=== PATIENT | male | born 1940 | race Caucasian/White ===

== ENCOUNTER → 2018-03-18 | Outpatient (CLI) | payer OTHER ==
[~2018-03-18] MED LIST: ASPIR 8181 MG PO; ASPIRIN EC325 MG PO; ATORVASTATIN CA40 MG PO; CLOPIDOGREL PO; COLACE100 MG PO; FLOMAX; HYDROCODONE-AP1 EAC6 PO; IMDUR 60 MG TAB60 M1 PO; LIPITOR80 MG PO; MIRALAX17 GM PO; MULTIVITAMINS1 EAC7 PO; NITROGLYCERIN0.4 MG SUBLING; OMEGA 3 FISH O1 EACH PO; OXYCODONE HCL5 MG PO; PLAVIX 75 MG TA75 M1 PO; POTASSIUM20 PO; PROTONIX40 M1 PO; PROTONIX40 M4 PO; RANEXA1000 MG PO; RANEXA500 MG PO; TERAZOSIN HCL10 MG PO; ULTRAM 50MG TAB50 MG PO; VALIUM5 MG PO; VYTORIN
--- NOTE | 2018-03-26 09:09 | PAINCON ---
[address] [address] PAIN MANAGEMENT CONSULTATION Name: LITODIANAKILO Sulaiman [facility] [id number] Admission: 03/18/18 Attend Phys: Tushar Mrak MD Discharge: Date of : 40 Report #: [id number] THIS REPORT FOR: //name// CC: Eric Munoz DATE OF SERVICE: 03/18/2018 FOLLOWUP HISTORY: Back pain with pain going down into my legs and makes it hard to walk. FOLLOWUP COMPLAINT: The patient is a 77-year-old gentleman who has been referred to the pain clinic for evaluation of back and leg pain. The patient states that he has been having some worsening of his pain over the years. He has been experiencing more pain and discomfort. Notes that if he stands for a prolonged period of time, his legs continue to become more painful. He is limited in his ability to walk. After walking for a period of time, if he sits down, his pain improves. Notes that when he goes shopping, if he leans over the shopping cart, he has less pain and discomfort. Notes some pins and needles type and stabbing sensation down into the lower extremities. Notes that when this happens, his legs start to give more numb. He has to sit down before the pain starts to corry. Denies any back surgeries in the past. Describes his discomfort as continuous, steady, constant, aching, crushing, pulling, sharp and rise to the level 9/10. Notes that sometimes when he is walking if he bends in somewhat of a stopper's position, his back pain improves somewhat. He walks with a slightly forward leaning position. He notes that sometimes decreases some of the pain and discomfort that he gets in his leg. If he stands up straight, he starts to notice pain radiating down the posterior portion of his thighs, left and right. ALLERGIES: PENICILLIN. CURRENT MEDICATIONS: Centrum tablet, fish oil 100 mcg 1 capsule daily, B12 100 mcg tablet, Lamictal 1% cream to the affected external area b.i.d., nitroglycerin 0.4 mg sublingual p.r.n., aspirin 81 mg, Lipitor 80 mg, clopidogrel 75 mg, Viagra 100 mg p.r.n., Cialis 20 mg b.i.d., I guess this biweekly, terazosin 5 mg daily, doxycycline q.12 hours 100 mg, pantoprazole 40 mg b.i.d., diazepam 5 mg t.i.d. as needed, and ibuprofen 800 mg t.i.d. PAST MEDICAL HISTORY: Anxiety, depression, hyperlipidemia, hypertension, and erectile dysfunction. PAST SURGICAL HISTORY: 1. Bypass. 2. [place] 2014[place] [address] PAIN MANAGEMENT CONSULTATION Name: KILO KIMBALL Room: [facility]#: [id number] Admission: 03/18/18 Attend Phys: Tushar Mark MD Discharge: Date of : 40 Report #: [id number] 3. Heart stent. 4. Right shoulder repair in 01/2016. 5. Carpal tunnel release x 2, left hand. FAMILY HISTORY: Father , Alzheimer's. Mother , cardiac disease. Sibling alive. One brother and one sister healthy, 3 sons healthy. SOCIAL HISTORY: Denies use of tobacco. Denies use of alcohol. 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 REVIEW OF SYSTEMS: Questionnaire indicates generally good health, 12-point review of systems, fatigue, wears glasses, cataracts/glaucoma, hearing loss, has bilateral hearing aids, chronic sinus, shortness of breath, heart trouble, frequent urination, incontinence/dribbling, frequent and recurring headaches, lightheadedness, dizziness, memory loss, confusion, nervousness, and depression. PAIN CLINIC ASSESSMENT: 1. The patient is not directly being treated for osteoarthritis or rheumatoid arthritis. History of osteoarthritis. 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 2. Height 5 feet 7 inches, weight 169 pounds, BMI is 22. 3. VITAL SIGNS: Blood pressure 124/73, heart rate 65, respiratory rate 16, room air saturation 96%, temperature 97.8. 4. Pain intensity 4/10 5. Fall risk. The patient has not fallen in the last 3 months. 6. Blood thinner. The patient is not being treated with a blood thinner. 7. History of hypertension. The patient is being treated for hypertension. 8. Opioid therapy greater than 6 weeks. The patient is not on opioid therapy. 9. Risk assessment tool. 10. Functional assessment tool. 11. Recreational drug use. The patient denies recreational drug use. 12. Tobacco: The patient denies use of tobacco. 13. Alcohol: The patient denies frequent use of alcoholic beverages. LABORATORY DATA: MRI results dated 02/10/2018. 1. L1-L2. Narrowed with circumferential osteophyte/disc complex. The central canal has AP diameter of 1.1 cm AP. 2. L2-L3. Broad-based annular disc bulge present with associated small disc osteophyte. Finding in the midline AP diameter of the thecal sac 0.6 cm. Advanced facet arthropathy. 3. L3-L4. Disc narrowed with circumferential annular disc bulge and associated small disc osteophyte arthropathy and posterior ligamentum hypertrophy are present. There is fluid signal intensity, elliptically shaped, anterior to the right facet joint. This measures 0.6 x 0.2 x 1.0 cm, best seen on the axial image 2. Combination of findings at this level resulted in 6.6 cm AP diameter from the thecal sac. There is mild inferior neural [place] [address] PAIN MANAGEMENT CONSULTATION Name: LITODIANAKILO Sulaiman Room: [facility]#: [id number] Admission: 03/18/18 Attend Phys: Tushar Mark MD Discharge: Date of : 40 Report #: [id number] Thecal sac 0.6 AP. 4. L4-L5: Mild disc narrowing with annular disc bulging. No focal disc protrusion. Advanced facet arthropathy present. There is moderate inferior neural foraminal encroachment bilaterally. Findings result in a diameter of 0.5 cm AP. 5. L5-S1. Minimal osteophyte complex. Advance facet arthropathy. Moderate encroachment, right neural foramen and moderate to severe left neural foraminal encroachment. AP diameter 0.9 cm. PHYSICAL EXAMINATION: GENERAL: The patient is a well-developed, well-nourished white male. He appears his stated age. He is alert and oriented x 3. His affect is appropriate. Speech is fluent, HEENT: Normocephalic, atraumatic. Extraocular eye muscles intact. Sclerae nonicteric. The patient has bilateral hearing aids and states that he has some decreased auditory acuity. NECK: Without JVD or bruits. CHEST: Regular rate, murmur 3/4. ABDOMEN: Nontender. MUSCULOSKELETAL: Generally without significant scoliosis or kyphosis. The patient walks somewhat leaning forward. Upper muscle strength is judged to be 5/5 for the major muscle groups. Deep tendon reflexes are trace, biceps bilaterally. Absent, triceps and brachioradialis. Sensory changes in the upper extremity generally within normal limits. Lower extremity, the patient complains of pain and discomfort when standing upright. Forward bending to about 30 degrees cause some increased low back pain as well as some pain radiating down the posterior portion of his legs, left and right lateral rotation, left and right lateral bending cause some slight discomfort. Having the patient stand on his toes quickly lost balance, did not fall, but is slightly unstable. Complains of pain and discomfort in the sciatic outflow tract and down the posterior portion of his legs in the L5-S1 distribution bilaterally. IMPRESSION: 1. Lumbar radiculopathy with spinal stenosis and clinical findings consistent with spinal stenosis in the L5-S1 distribution with lumbar radicular symptoms. 2. Anxiety. 3. Depression. 4. Hyperlipidemia. 5. Hypertension. 6. Erectile dysfunction. RECOMMENDATIONS: We discussed the treatment options with the patient and his son. Risks and benefits of an epidural steroid injection were discussed. Possible complications were reviewed. They include but are not limited to infection, increased muscle soreness headaches, bleeding, worsening of pain, [place] [address] PAIN MANAGEMENT CONSULTATION Name: KALYANCasaKILO Room: [facility] Derrick#: [id number] Admission: 03/18/18 Attend Phys: Tushar Mark MD Discharge: Date of : 40 Report #: [id number] suspect muscle spasms and spinal headache. He will return to the pain clinic at which time he will then undergo an epidural steroid injection. <ELECTRONICALLY SIGNED> By: Tushar Mark MD 03/26/18 0909 [id number] 1959N. John Mark MD /nt
== END ==
LOC: M.PC 02:27
DX: M47.27 Other spondylosis with radiculopathy, lumbosacral region (principal); F41.9 Anxiety disorder, unspecified; F32.9 Major depressive disorder, single episode, unspecified; E78.5 Hyperlipidemia, unspecified; I10 Essential (primary) hypertension; N52.9 Male erectile dysfunction, unspecified; Z88.0 Allergy status to penicillin

== ENCOUNTER → 2018-03-30 | Outpatient (CLI) | payer OTHER ==
--- NOTE | 2018-04-28 13:50 | PAINCON ---
[address] [address] PAIN MANAGEMENT CONSULTATION Name: KILO KIMBALL [facility]: [facility] Meza#: [id number] Admission: 03/30/18 Attend Phys: Tushar Mark MD Discharge: Date of : 40 Report #: [id number] THIS REPORT FOR: //name// CC: Eric Mark DATE OF SERVICE: 03/30/2018 FOLLOWUP COMPLAINT: Pain down into the legs. I saw a neurosurgeon. He is thinking about doing surgery in the near future. My pain is really bad and he feels that it would be okay to proceed with an epidural steroid injection while we wait for my surgery. FOLLOWUP HISTORY: The patient is a 77-year-old gentleman, who has been seen in the pain clinic because of back pain with pain radiating down to his legs. As you recall, he has pain, which is quite problematic. He rates it as a 5/10. He states that he has seen a neurosurgeon. He has met with Dr. Chaparro Barrow. They are contemplating doing surgery for his back at the end of March. He has shattered with them. At this juncture, they feel that it would be reasonable because of his spinal stenosis and chronic pain to undergo an epidural steroid injection at this juncture, will not be a problem with his upcoming surgery. As you recall, he has pain, which has worsened over the years. He notes that the pain is problematic, especially when he stands for some time. He is limited in his ability to walk and engage in activities of daily living. Notes that pain improves when he goes shopping by leaning over the cart. Also, he is having some needle, pin sensation radiating down into his lower extremities. He notes that when this happens, his legs become more numb. After sitting down for a few minutes he notes that his pain starts to corry. He continues to have pain, which he described as continuous, steady, constant, aching, crushing, pulling, sharp and rates it as a level of 5/10 at this juncture. Notes that when he stands erect that he experiences pain that radiates down the posterior portion of his thigh and on the left and right. ALLERGIES: PENICILLIN. CURRENT MEDICATIONS: Fish oil 100 mcg capsule daily, B12 100 mcg tablet, Lamictal cream to the affected area b.i.d., nitroglycerin 0.4 mg sublingual p.r.n., aspirin 81 mg, Lipitor 81 mg, Plavix 75 mg, Viagra 100 mg p.r.n., Cialis 20 mg b.i.d., terazosin 5 mg daily, doxycycline q.12h. 100 mg, pantoprazole 40 mg b.i.d., diazepam 5 mg t.i.d., ibuprofen 800 mg t.i.d. PAIN CLINIC ASSESSMENT: 1. The patient is not being treated for arthritis or rheumatoid arthritis. Has a history of osteoarthritis and has had degenerative disk disease of lumbar spine. 2. VITAL SIGNS: Height 5 feet 7 inches, weight 164 pounds, BMI is 25. Blood [facility] [address] [place] [address] PAIN MANAGEMENT CONSULTATION Name: KILO KIMBALL Room: [facility] Derrick#: [id number] Admission: 03/30/18 Attend Phys: Tushar Mark MD Discharge: Date of : 40 Report #: [id number] pressure 144/73, heart rate 67, respiratory rate 16, room air saturation 97%, temperature 97.7. 3. Pain intensity 03/25. 4. Fall risk. The patient has not fallen in the last 3 months. 5. Blood thinner. The patient is not on a blood thinner. 6. History of hypertension. The patient is being treated for hypertension. 7. Opioid therapy greater than 6 weeks. The patient is not on opioid therapy. 8. Risk assessment tool. 9. Functional assessment tool. 10. Recreational drug use. The patient denies recreational drug use. 11. Tobacco: The patient denies use of tobacco. 12. Alcohol: The patient denies frequent use of alcoholic beverages. PHYSICAL EXAMINATION: GENERAL: The patient is a well-developed, well-nourished white male. He appears stated age. He is alert and oriented. His affect is appropriate. Speech is fluent. HEENT: Normocephalic, atraumatic. Extraocular eye muscles intact. Sclerae nonicteric. Bilateral hearing aids are in place. States that he has some decreased auditory acuity. NECK: Without JVD or bruits. CHEST: Clear to auscultation, grade 3/4 systolic ejection murmur. ABDOMEN: Nontender. MUSCULOSKELETAL: Without significant scoliosis, kyphosis or lordosis. The patient is able to walk and walk somewhat with a forward lean. Upper extremity muscle strength is judged to be 5/5 for the major muscle groups in the upper extremity. Deep tendon reflexes are trace in the biceps and triceps bilaterally. Absent brachioradialis reflexes. Sensory changes upper extremity within normal limits without sensory deprivation. The patient stands with a forward leaning posture. Left and right lateral bending, left and right lateral rotation cause some increased discomfort. The patient unable to stand on his toes or heels secondary to loss of balance. Notes pain and discomfort in the sciatic outflow tract with pain radiating down the L5-S1 distribution during the exam. IMPRESSION: 1. Lumbar radiculopathy with spinal stenosis and clinical findings consistent with spinal stenosis in the L5-S1 distribution with symptomatology. 2. Anxiety. 3. Depression. 4. Hypertension. 5. Hyperlipidemia. 6. Erectile dysfunction. RECOMMENDATIONS: We discussed treatment options with the patient. Risks and benefits of an epidural steroid injection [place] [address] PAIN MANAGEMENT CONSULTATION Name: KILO KIMBALL Room: [facility]#: [id number] Admission: 03/30/18 Attend Phys: Tushar Mark MD Discharge: Date of : 40 Report #: [id number] complication of the procedure, which could include infection, increased muscle soreness, worsening of pain, numbness, paresis were discussed. The patient is aware of the complication and he elects to proceed. PROCEDURE NOTE: The patient was taken to the procedure area. He was then assisted in getting on the examination table. He was placed in the prone position. Alcohol/Betadine was used to sterilize his back. Fluoroscopy using the anterior, posterior as well as lateral direction from fluoroscopy was performed. After the appropriate placement at the lower L5-S1 left lateral position a 17-gauge Tuohy was placed. There was no CSF, heme or paresthesia. Total of 80 mg Depo-Medrol, 40 mg triamcinolone and 2 mL of 0.25% bupivacaine was injected. Fluoroscopy time was 6 seconds. Pain decreased from 5-0 at the time of discharge. The site was bandaged. There was no bleeding. He remained in the pain clinic for an appropriate amount of time. He will follow up in the future as needed. We would like to thank you for letting us participate in his care. We hope he continues to improve. <ELECTRONICALLY SIGNED> By: Tushar Mark MD 04/28/18 1350 [id number] 0452N. John Mark MD /nt
== END | disposition home or self-care (01) ==
LOC: M.PC 02:17
DX: M48.061 Spinal stenosis, lumbar region without neurogenic claudication (principal); M54.16 Radiculopathy, lumbar region; I10 Essential (primary) hypertension; E78.5 Hyperlipidemia, unspecified; N52.9 Male erectile dysfunction, unspecified; F32.9 Major depressive disorder, single episode, unspecified; F41.9 Anxiety disorder, unspecified; M19.90 Unspecified osteoarthritis, unspecified site; Z88.0 Allergy status to penicillin; Z79.899 Other long term (current) drug therapy; Z79.82 Long term (current) use of aspirin; Z79.891 Long term (current) use of opiate analgesic

== ENCOUNTER → 2018-07-29 | Outpatient (CLI) | payer OTHER ==
--- NOTE | 2018-08-30 10:00 | PAINCON ---
[address] [address] PAIN MANAGEMENT CONSULTATION Name: LITODIANAKILO Sulaiman Room: [facility] Meza#: [id number] Admission: 07/29/18 Attend Phys: Tushar Mark MD Discharge: Date of : 40 Report #: [id number] THIS REPORT FOR: //name// CC: Eric Mark DATE OF SERVICE: 07/29/2018 FOLLOWUP COMPLAINT: The pain was 100% better. Now it is 50% better. "I am going on a hunting expedition in a couple of days." FOLLOWUP HISTORY: The patient is a 78-year-old gentleman who has been seen in the pain clinic in the past because of lumbar radiculopathy. He underwent an epidural steroid injection. He gleaned significant benefit from that injection. Overall, he feels that his pain is about 50% better. Still having some discomfort. He and his friends are going hunting in [facility] and other areas in the next few days. He would like to undergo an epidural steroid injection, so he can keep up with his friends. He has had no complications from the procedure. Overall, he feels that he has been able to engage in activities of daily living with less discomfort. He does not have any bowel or bladder dysfunction. He rates his pain as 5/10 at this juncture. ALLERGIES: PENICILLIN. CURRENT MEDICATIONS: Fish oil 100 mcg capsules, B12 100 mcg capsules, Lamictal cream to the affected area b.i.d., nitroglycerin 0.4 mg sublingual p.r.n., aspirin 81 mg, Lipitor 81 mg, Plavix 75 mg, Viagra 100 mg p.r.n., Cialis 20 mg b.i.d., terazosin 5 mg, doxycycline every 12 hours 100 mg, pantoprazole 40 mg b.i.d., diazepam 5 mg t.i.d., ibuprofen 800 mg t.i.d. PAIN CLINIC ASSESSMENT: 1. The patient has not been treated for rheumatoid arthritis or osteoarthritis. Does have a history of osteoarthritis with some degenerative disk disease of the lumbar spine. 2. VITAL SIGNS: Blood pressure 152/73, heart rate 67, respiratory rate 16, room air saturation 97%, temperature 98.0, pain score 5/10. 3. Height 5 feet 7 inches, weight 171 pounds, BMI is 26.9. 4. Fall history: The patient has not fallen in the last 3 months. 5. Blood thinner. The patient is not on a blood thinner medication at this juncture. 6. Hypertension. The patient is being treated for hypertension. 7. Opioid therapy greater than 6 weeks. The patient is not on opioid medication. 8. Risk assessment tool. 9. Functional assessment tool. 10. Recreational drug use. The patient denies [place] [address] PAIN MANAGEMENT CONSULTATION Name: KILO KIMBALL [facility] [id number] Admission: 07/29/18 Attend Phys: Tushar Mark MD Discharge: Date of : 40 Report #: [id number] 11. Tobacco: The patient denies use of tobacco. 12. Alcohol: The patient denies use of alcoholic beverages. PHYSICAL EXAMINATION: GENERAL: The patient is a well-developed, well-nourished white male. Appears his stated age. He is alert and oriented x3. His affect is appropriate. Speech is fluent. HEAD, EYES, EARS, NOSE, AND THROAT: Normocephalic, atraumatic. Extraocular eye muscles intact. Sclerae nonicteric. Mucous membranes are moist. Hearing is within normal limits. The patient has bilateral hearing aids in place. NECK: Without JVD or bruits. CHEST: Clear to auscultation, grade 3/4 systolic ejection murmur. ABDOMEN: Nontender, without organomegaly. MUSCULOSKELETAL: Without significant kyphosis, lordosis, or scoliosis. The patient walks with a somewhat antalgic gait with a forward lean, less so than initially when seen in the pain clinic. Upper extremity muscle strength is judged to be 5/5 for the major muscle groups. Lower extremity muscle strength is judged to be 5-/5 for the major muscle groups in the lower extremity. He has pain and discomfort, which radiates down into the left as well as the right L5-S1 dermatomal distribution. IMPRESSION: 1. Lumbar radiculopathy with history of spinal stenosis. 2. Anxiety. 3. Depression. 4. Hypertension. 5. Hyperlipidemia. 6. Erectile dysfunction. RECOMMENDATIONS: We discussed treatment options with the patient. Risk and benefits of an epidural steroid injection were again reviewed. They include but are not limited to infection, increased muscle soreness, headache, bleeding, worsening of pain, and no improvement in pain. The patient would like to proceed. He was taken to the examination area. He was assisted in getting up on the examination table. His back was sterilely prepped with a Betadine solution. Fluoroscopy using anterior, posterior as well as lateral viewing were instituted. At the L5-S1 area, 0.25% bupivacaine was infiltrated in the midline approach. A 17-gauge Tuohy with loss of resistance technique was used to gain access to the epidural space. There was no CSF, heme or paresthesia. Total of 80 mg Depo-Medrol, 40 mg triamcinolone and 2 mL of 0.25% bupivacaine was injected. The patient tolerated the procedure well. He remained in the pain clinic for an appropriate amount of time. He will follow up in the future as needed. We would like to thank you for letting us to participate in [place] [address] PAIN MANAGEMENT CONSULTATION Name: KILO KIMBALL Room: [facility]#: [id number] Admission: 07/29/18 Attend Phys: Tushar Mark MD Discharge: Date of : 40 Report #: [id number] he continues to improve. Total of 11 seconds fluoroscopy time was used. A Band-Aid was placed. There was no bleeding. <ELECTRONICALLY SIGNED> By: Tushar Mark MD 08/30/18 [id number]. John Mark MD /[facility]
== END | disposition home or self-care (01) ==
LOC: M.PC 04:02
DX: M54.16 Radiculopathy, lumbar region (principal); G89.29 Other chronic pain; I10 Essential (primary) hypertension; E78.5 Hyperlipidemia, unspecified; F32.9 Major depressive disorder, single episode, unspecified; F41.9 Anxiety disorder, unspecified; N52.9 Male erectile dysfunction, unspecified; Z88.0 Allergy status to penicillin; Z79.899 Other long term (current) drug therapy; Z98.890 Other specified postprocedural states; Z79.82 Long term (current) use of aspirin

== ENCOUNTER → 2018-12-14 | Outpatient (CLI) | payer OTHER ==
--- NOTE | ~2018-12-14 | PAINCON ---
[address] [address] PAIN MANAGEMENT CONSULTATION Name: KILO KIMBALL Room: [facility] Meza#: [id number] Admission: 12/14/18 Attend Phys: Tushar Mark MD Discharge: Date of : 40 Report #: [id number] THIS REPORT FOR: //name// CC: Eric Mark DATE OF SERVICE: 12/14/2018 HISTORY OF PRESENT ILLNESS: The patient is a 78-year-old gentleman who has been seen in the pain clinic because of lumbar radiculopathy. He suffers from spinal stenosis. He has undergone epidural steroid injection and gleaned significant benefit from that. He has returned today indicating that his pain has been problematic. He is experiencing pain in his legs and calves bilaterally. He is scheduled to have surgery in 04/[address] Chaparro Barrow. He continues to have pain that radiates down into the posterior portion of his legs, involving his heels. He underwent an epidural steroid injection in the past. He noticed a significant improvement in his pain. He has returned today with the hope of undergoing another epidural steroid injection. He has plans of going on a significant junior ____ number of states including [place], [place], and other [place] states for [place]. He feels that the injection was quite beneficial. He did not have any problems with the injection. He has returned for another injection. Finds that ibuprofen can be helpful, taken p.r.n. ALLERGIES: PENICILLIN. MEDICATIONS: Fish oil 100 mcg capsules, vitamin B12 of 100 mcg capsules, Lamictal cream to the affected area b.i.d., nitroglycerin 0.4 mg sublingual p.r.n., aspirin 81 mg, Lipitor 81 mg, Plavix 75 mg, Viagra 100 mg, Cialis 20 mg b.i.d., terazosin 5 mg, doxycycline q. 12 hours 100 mg, pantoprazole 40 mg b.i.d., diazepam 5 mg t.i.d., and ibuprofen 800 mg t.i.d. PAIN CLINIC ASSESSMENT AND PQRS: 1. The patient is not being treated for rheumatoid arthritis. Has some osteoarthritic changes in his low back area. 2. Vital signs; blood pressure 149/73, heart rate 62, respiratory rate 16, room air saturation 97%, temperature 97.6, height 5 feet 7 inches, weight 178 pounds, BMI is 28.2. 3. Pain score, low and waxes and wanes. Not very problematic today. 4. Fall history: The patient has not fallen in the last 3 months. 5. Blood thinner. The patient is not on a blood thinner today. 6. Hypertension. The patient is being treated for hypertension. 7. Opioid therapy greater than 6 weeks. There is not on an opioid regimen. 8. Risk assessment tool, low for opioid use. 9. Functional assessment tool. 10. Recreational drug use. The patient denies use of recreational drugs. 11. Tobacco: The [place] [address] PAIN MANAGEMENT CONSULTATION Name: KILO KIMBALL Room: [facility]#: [id number] Admission: 12/14/18 Attend Phys: Tushar Mark MD Discharge: Date of : 40 Report #: [id number] 12. Alcohol: The patient denies use of alcoholic beverages. PHYSICAL EXAMINATION: GENERAL: The patient is a well-developed, well-nourished white male. Appears his stated age. He is alert and oriented x 3. His affect is appropriate. Speech is fluent. HEENT: Normocephalic, atraumatic. Extraocular eye muscles intact. Sclerae nonicteric. Mucous membranes are moist. The patient has hearing aids in his ears bilaterally. NECK: Without adenopathy or JVD. CHEST: Clear to auscultation. Grade 3/4 systolic ejection murmur. ABDOMEN: Nontender, without organomegaly. MUSCULOSKELETAL: Without significant kyphosis, scoliosis, or lordosis. The patient walks with somewhat antalgic gait, leaning slightly forward. He has muscle strength in the lower extremity, judged to be 5-/5 for the major muscle groups in the lower extremity. Upper extremity 5-/5 for the major muscle groups. He has pain and discomfort in the L5-S1 dermatomal distribution with pain in his legs when it is problematic bilaterally. IMPRESSION: 1. Lumbar radiculopathy with history of spinal stenosis. 2. Anxiety. 3. Depression. 4. Hypertension. 5. Hyperlipidemia. 6. Erectile dysfunction. RECOMMENDATIONS: We discussed treatment options with the patient. Risks and benefits of an epidural steroid injection were again reviewed. They include but are not limited to infection, worsening pain, no improvement in pain, nerve damage, paralysis and the patient elects to proceed. PROCEDURE NOTE: The patient was placed in the prone position. Fluoroscopy using anterior and posterior positioning was used to identify the L5-S1 dermatomal distribution. Fluoroscopy was then used to direct a 17-gauge Tuohy with loss of resistance technique using a midline approach at the L4-L5 interspace. This area had been sterilely prepped with an infiltration of 0.25% bupivacaine. A total of 80 mg Depo-Medrol, 40 mg triamcinolone and 2 mL of 0.25% bupivacaine was injected. The patient tolerated the procedure well. There were no complications. He remained in the pain clinic for an appropriate amount of time. He will follow up [place] [address] PAIN MANAGEMENT CONSULTATION Name: LITOKILO ORTIZ Room: [facility]#: [id number] Admission: 12/14/18 Attend Phys: Tushar Mark MD Discharge: Date of : 40 Report #: [id number] We would like to thank you for letting us participate in his care. We hope he continues to improve. By: [id number]. John Mark MD /nt
== END | disposition home or self-care (01) ==
LOC: M.PC 04:56
DX: M54.16 Radiculopathy, lumbar region (principal); M48.061 Spinal stenosis, lumbar region without neurogenic claudication; G89.29 Other chronic pain; I10 Essential (primary) hypertension; E78.5 Hyperlipidemia, unspecified; F32.9 Major depressive disorder, single episode, unspecified; F41.9 Anxiety disorder, unspecified; N52.9 Male erectile dysfunction, unspecified; Z88.0 Allergy status to penicillin; Z79.82 Long term (current) use of aspirin; Z79.899 Other long term (current) drug therapy; Z98.890 Other specified postprocedural states

== ENCOUNTER → 2019-02-02 | Outpatient (CLI) | payer OTHER ==
--- NOTE | 2019-02-02 09:27 | 2DMMODE ---
[place] [address] 2 D/M-MODE ECHOCARDIOGRAM Name: LITOKILO ORTIZ Room: [facility]#: [id number] Admission: 02/02/19 Attend Phys: Po Jordan, Discharge: Date of : 40 Date of Service: 02/02/19 0927 Report #: [id number] THIS REPORT FOR: //name// APPROVED REPORT Study performed: 02/02/2019 08:08:32 EXAM: Comprehensive 2D, Doppler, and color-flow Echocardiogram Patient Location: Out-Patient BSA: 1.84 HR: 55 bpm BP: 134/70 mmHg Other Information Study Quality: Good Indications Aortic Valve Disease 2D Dimensions IVSd: 12.16 (7-11mm) LVOT Diam: 20.21 (18-24mm) LVDd: 43.90 mm PWd: 10.02 (7-11mm) Ascending Ao: 31.94 (22-36mm) LVDs: 32.11 (25-40mm) Aortic Root: 26.97 mm Volumes Left Atrial Volume (Systole) LA ESV Index: 14.00 mL/m2 Aortic Valve AoV Peak Dudley.: 1.96 m/s AO Peak Gr.: 15.30 mmHg LVOT Max P.76 mmHg AO Mean Gr.: 9.31 mmHg LVOT Mean P.86 mmHg LVOT Max V: 0.66 m/s AO V2 VTI: 48.15 cm LVOT Mean V: 0.43 m/s WINDY (VTI): 1.04 cm2 LVOT V1 VTI: 15.57 cm Mitral Valve E/A Ratio: 1.29 MV Decel. Time: 205.12 ms MV E Max Dudley.: 0.75 m/s MV PHT: 59.49 ms MVA (PHT): 3.70 [place]2 [place] [address] 2 D/M-MODE ECHOCARDIOGRAM Name: KILO KIMBALL Room: [facility]#: [id number] Admission: 02/02/19 Attend Phys: Po Jordan, Discharge: Date of : 40 Date of Service: 02/02/19 0927 Report #: [id number] TDI E/Lateral E': 6.82 E/Medial E': 8.33 Medial E' Dudley.: 0.09 m/s Lateral E' Dudley.: 0.11 m/s Pulmonary Valve PV Peak Dudley.: 1.13 m/s PV Peak Gr.: 5.14 mmHg Tricuspid Valve RAP Estimate: 5.00 mmHg TR Peak Gr.: 22.37 mmHg RVSP: 27.37 mmHg PA Pressure: 27.37 mmHg Left Ventricle The left ventricle is normal size. There is normal LV segmental wall motion. There is normal left ventricular wall thickness. Left ventricular systolic function is normal. The left ventricular ejection fraction is within the normal range. LVEF is 55%. The left ventricular diastolic function is normal. Right Ventricle The right ventricle is normal size. The right ventricular systolic function is normal. Atria The left atrium size is normal. The right atrium size is normal. Aortic Valve Aortic valve is mildly calcified. No aortic regurgitation is present. There is no aortic valvular stenosis. Mitral Valve Mitral valve leaflets are mildly calcified. Mild mitral regurgitation. No evidence of mitral valve stenosis. Tricuspid Valve The tricuspid valve is normal in structure. Mild tricuspid regurgitation. Pulmonic Valve The pulmonary valve is normal in structure. Mild pulmonic regurgitation[place] [address] 2 D/M-MODE ECHOCARDIOGRAM Name: LITODIANAKILO Sulaiman [facility] [id number] Admission: 02/02/19 Attend Phys: Po Jordan, Discharge: Date of : 40 Date of Service: 02/02/19 0927 Report #: [id number] The aortic root is normal in size. IVC is normal in size and collapses >50% with inspiration. Pericardium There is no pericardial effusion. <Conclusion> The left ventricle is normal size. There is normal left ventricular wall thickness. Left ventricular systolic function is normal. The left ventricular ejection fraction is within the normal range. LVEF is 55%. The left ventricular diastolic function is normal. The right ventricle is normal size. The left atrium size is normal. Aortic valve is mildly calcified. No aortic regurgitation is present. There is no aortic valvular stenosis. Mitral valve leaflets are mildly calcified. Mild mitral regurgitation. No evidence of mitral valve stenosis. The tricuspid valve is normal in structure. Mild tricuspid regurgitation. IVC is normal in size and collapses >50% with inspiration. There is no pericardial effusion. There is normal LV segmental wall motion. <ELECTRONICALLY SIGNED> By: Chaparro Johnson MD, FACC 02/02/19926 6 6 Chaparro Johnson MD, FACC /INF
== END ==
LOC: M.CRD 07:42
DX: I08.1 Rheumatic disorders of both mitral and tricuspid valves (principal); I25.10 Atherosclerotic heart disease of native coronary artery without angina pectoris

== ENCOUNTER → 2019-03-24 | Outpatient (CLI) | payer OTHER ==
--- NOTE | ~2019-03-24 | PAINCON ---
[address] [address] PAIN MANAGEMENT CONSULTATION Name: REHANAKILO Hilario [facility] Meza[facility] [id number] Admission: 03/24/19 Attend Phys: Tushar Mark MD Discharge: Date of : 40 Report #: [id number] THIS REPORT FOR: //name// CC: Eric Mark DATE OF SERVICE: 03/24/2019 CHIEF COMPLAINT: Pain in the low back that is going down into both legs. HISTORY: The patient is a 78-year-old gentleman who has been seen in the Pain Clinic in the past because of lumbar radiculopathy. The patient has a history of spinal stenosis. He has undergone epidural steroid injections and found them beneficial. As you may recall, he is a pily. He has hopes of going on a number of hunting excursions this year. He underwent an epidural injection last year and was able to do reasonably well. His has noticed that his pain has started to increase again. The pain in the low back and calf area is limiting his ability to ambulate well. He feels that he is somewhat unsteady in his gait. He has been advised to use a walker but has tried to refrain from this activity. He is scheduled to see Dr. Chaparro Barrow on 04/01/2019. He has returned today for an epidural steroid injection. He rates his pain as a 10/10. He has used ibuprofen p.r.n. ALLERGIES: PENICILLIN. CURRENT MEDICATIONS: Fish oil 1000 mcg capsules, aspirin 81 mg, Lipitor 80 mg, Valium 5 mg - one-half tablet a.m. and one-half tablet p.m. anxiety, Colace 100 mg, hydrocodone 5/325s one p.o. t.i.d., multivitamin, Protonix 40 mg, MiraLax 17 grams, terazosin 10 mg. PAIN CLINIC ASSESSMENT/PQRS: 1. The patient is not being treated for rheumatoid arthritis. He does have arthritic changes in his low back. 2. Vital signs: Blood pressure is 164/88, pulse 57, respiratory rate 16, room air saturation 97%, temperature 98.1. 3. Height 5 feet 7 inches, weight 178 pounds, BMI is 27.8. 4. Pain intensity: 10/10. 5. Fall history: The patient has not fallen in the last 3 months. 6. Blood thinner: The patient is not on a blood thinning medication. 7. Hypertension: The patient is being treated for hypertension. 8. Opioid therapy greater than 6 weeks: The patient is not on an opioid regimen. 9. Risk assessment tool: Low for opioid use. 10. Functional assessment tool. 11. Recreational drug use: The patient [place] [address] PAIN MANAGEMENT CONSULTATION Name: KILO KIMBALL Room: [facility]#: [id number] Admission: 03/24/19 Attend Phys: Tushar Mark MD Discharge: Date of : 40 Report #: [id number] 12. Tobacco: The patient denies use of tobacco. 13. Alcohol: The patient denies use of alcoholic beverages. PHYSICAL EXAMINATION: GENERAL: The patient is a well-developed, well-nourished white male. He appears his stated age of 78 years. He is alert and oriented x 3. His affect is appropriate. Speech is fluent. HEENT: Normocephalic, atraumatic. Extraocular eye muscles intact. Sclerae nonicteric. Mucous membranes are moist. NECK: Without adenopathy or JVD. CHEST: Clear to auscultation. HEART: Grade 3 systolic ejection murmur. ABDOMEN: Nontender, without organomegaly. MUSCULOSKELETAL: Without significant scoliosis, kyphosis, or lordosis. The patient walks with an antalgic gait. He has a forward lean. He has some diminished strength in his lower extremities, judged to be 4+/5 for the major muscle groups in the lower extremity. Upper extremity 4+/5 for the major muscle groups in the upper extremity. The patient has pain and discomfort, which is in the L5-S1 dermatomal distribution with pain down into both legs. IMPRESSION: 1. Lumbar radiculopathy with history of spinal stenosis. 2. Anxiety. 3. Hypertension. 4. Depression. 5. Hyperlipidemia. 6. Erectile dysfunction. RECOMMENDATIONS: We discussed treatment options with the patient. Risks and benefits of an epidural steroid injection were discussed. They include but are not limited to infection, worsening of pain, increasing of pain, bleeding, nerve trauma, and the patient elects to proceed. PROCEDURE NOTE: The patient was taken to the procedure area. He was then assisted in getting on the examination table. His back was sterilely prepped with a Betadine solution. A 17-gauge Tuohy with loss of resistance technique was used to gain access to the epidural space. There was no CSF, heme or paresthesia. A total of 80 mg Depo-Medrol, 40 mg triamcinolone and 2 mL of 0.25% bupivacaine was injected. A total of 11 seconds of fluoroscopy time was used. The patient's pain remained 10/10 at the time of discharge. He will follow up in the future as needed. [address] [place] [address] PAIN MANAGEMENT CONSULTATION Name: KILO KIMBALL [facility]: [facility] [id number] Admission: 03/24/19 Attend Phys: Tushar Mark MD Discharge: Date of : 40 Report #: [id number] We would like to thank you for letting us participate in his care. We hope he continues to improve. By: 2120 [id number]. John Mark MD /nt
== END | disposition home or self-care (01) ==
LOC: M.PC 05:10
DX: M54.16 Radiculopathy, lumbar region (principal); G89.29 Other chronic pain; I10 Essential (primary) hypertension; F32.9 Major depressive disorder, single episode, unspecified; F41.9 Anxiety disorder, unspecified; E78.5 Hyperlipidemia, unspecified; Z98.890 Other specified postprocedural states; Z79.899 Other long term (current) drug therapy; Z88.0 Allergy status to penicillin; Z79.891 Long term (current) use of opiate analgesic

== ENCOUNTER → 2019-04-12 | Outpatient (CLI) | payer OTHER | LOC: M.MRI 14:30 → M.LAB 14:44 → M.MRI 14:44 | DX: M51.27 Other intervertebral disc displacement, lumbosacral region (principal); M48.07 Spinal stenosis, lumbosacral region; M51.36 Other intervertebral disc degeneration, lumbar region; M12.88 Other specific arthropathies, not elsewhere classified, other specified site ==

== ENCOUNTER 2020-01-30 05:43 | Observation (INO) | payer MEDICARE ==
[2020-01-19 08:55] LABS: ABSOLUTE EOSINOPHILS 0.2 thou/uL (0.0-0.7); ABSOLUTE LYMPHOCYTES 1.6 thou/uL (0.8-5.3); ABSOLUTE MONOCYTES 0.3 thou/uL (0.0-1.2); ABSOLUTE NEUTROPHILS 2.3 thou/uL (1.6-8.1); EOSINOPHILS 4.8 %; HEMATOCRIT 36.9 % (42.0-52.0); HEMOGLOBIN 12.7 gm/dL (14.0-18.0); LYMPHOCYTES 36.5 %; MCH 31.4 pg (26.0-34.0); MCHC 34.3 g/dL (28.0-37.0); MCV 91.6 fL (80.0-100.0); MONOCYTES 6.2 %; MPV 8.6 fl. (7.2-11.1); NUCLEATED RBCS 0 /100WBC; PLATELET COUNT* 201 thou/uL (150-400); POLYS 51.5 %; RBC 4.03 mil/uL (4.50-6.00); WBC 4.5 thou/uL (4.0-11.0)
[2020-01-19 08:59] LABS: APTT 26.6 Seconds (25.0-31.3); INR 1.1; PROTIME 10.9 Seconds (9.20-11.50)
[2020-01-19 09:03] LABS: ALBUMIN 4.1 g/dL (3.4-5.0); CALCIUM 8.8 mg/dL (8.5-10.1); CREATININE 1.4 mg/dL (0.6-1.3); POTASSIUM 4.2 mmol/L (3.5-5.1); TOTAL BILIRUBIN 0.7 mg/dL (<0.1-1.0); TOTAL PROTEIN 7.6 g/dL (6.4-8.2)
[2020-01-19 09:50] LABS: ESR (SEDRATE) 8 mm/hr (0-20)
[~2020-01-30] VITALS: Ht 170.2 cm; Wt 77.1 kg
[~2020-01-30 05:43] MED LIST changes: +FLOMAX0.4 MG PO; +IBU800 MG PO; +MELOXICAM15 MG PO; +VITAMIN B-12100 MC1 PO; +ZETIA10 MG PO
[2020-01-30 08:00] VITALS: BP 140/72
--- NOTE | 2020-01-30 14:03 | CON ---
[address] [address] CONSULTATION Name: KILO KIMBALL Room: [address] [place].R.#: [id number] Admission: 01/30/20 Attend Phys: Mary Mcclure MD Discharge: Date of : 40 Report #: [id number] THIS REPORT FOR: //name// cc: Eric Cleaning Bradley L. DO THIS REPORT FOR: //name// CC: Eric Romero DATE OF SERVICE: 01/30/2020 CARDIOLOGY CONSULTATION HISTORY OF PRESENT ILLNESS: The patient is a 79-year-old single white male who I was asked to see in the hospital today for preoperative assessment. The patient has an extensive past medical history. He apparently had 5-vessel bypass surgery at [facility] in 1989. He has done well since that time. He apparently did have stenting of his circumflex artery back in 2012 here at [facility]. Recently, he has been followed by my partner, Dr. Po Jordan. The patient stays very active and denies recent chest pain, shortness of breath, palpitations, syncope, or peripheral edema. He does have a history of aortic stenosis and apparently had a recent echocardiogram that showed only moderate aortic stenosis. Recently, the patient complained of knee pain. He is scheduled to undergo knee surgery. Dr. Jordan actually saw the patient in the office 2 weeks ago and felt he was stable from a cardiac standpoint and had no cardiac contraindication for knee surgery. However, the patient showed up in outpatient surgery today was noted to have abnormal ECG. Cardiology consultation was again requested. PAST MEDICAL HISTORY: Otherwise significant for prostatic hypertrophy, hyperlipidemia. No history of hypertension, diabetes. PREVIOUS SURGERY: Include carpal tunnel, cataract, shoulder surgery. MEDICATIONS: His current medications include aspirin, which was stopped a week ago, Lipitor, Zetia, Protonix, Hytrin. ALLERGIES: HE HAS AN ALLERGY TO PENICILLIN. FAMILY HISTORY: His brother had bypass surgery. SOCIAL HISTORY: He is , currently is engaged. He lives in [place], [place], runs a [employer]. No [place] [address] CONSULTATION Name: KILO KIMBALL Room: [address]#: [id number] Admission: 01/30/20 Attend Phys: Mary Mcclure MD Discharge: Date of : 40 Report #: [id number] REVIEW OF SYSTEMS: He has had no history of stroke, asthma, GI bleeding, liver disease, kidney disease, cancer, psychiatric illness, chronic skin condition. PHYSICAL EXAMINATION: GENERAL: Revealed an elderly male, lying in bed, appeared in no distress. VITAL SIGNS: Blood pressure 130/60, pulse is 80. HEENT: Eyes anicteric. Conjunctivae are pink. Mucous membranes are moist. NECK: Veins not distended. CHEST: Clear to auscultation. CARDIOVASCULAR: Regular rate and rhythm, grade 3 systolic ejection murmur along the left sternal border. ABDOMEN: Soft. EXTREMITIES: Had no edema. Posterior tibial pulse 2+ bilaterally. SKIN: Warm and dry. NEUROLOGIC: Nonfocal. DIAGNOSTIC DATA: His ECG from 01/18 showed sinus bradycardia, evidence of previous inferior infarction. ECG done today in preoperative area showed a sinus rhythm, evidence of previous inferior infarction, nonspecific T-wave changes. His echocardiogram done 01/2019, a year ago showed an ejection fraction of 50% with evidence of only mild aortic stenosis, peak gradient 15 mmHg. His last nuclear stress test in 2016 showed ejection fraction of 65% with no evidence of ischemia. The patient had lab work 01/18 that showed potassium 4.2, creatinine 1.4. Liver function studies were normal. White blood cell count 4.5, hematocrit 36.9. IMPRESSION AND RECOMMENDATIONS: 1. Coronary artery disease. Previous bypass surgery. No recent angina. I would resume aspirin today after surgery, because of vascular disease I would consider adding an YUNIER inhibitor. 2. Hyperlipidemia. The patient is on a statin drug and Zetia. 3. Mild aortic stenosis. 4. Degenerative joint disease. The patient is scheduled for knee surgery. He appears to have no cardiac contraindication to elective knee surgery. 5. Prostatism. <ELECTRONICALLY SIGNED> By: Waylon Sidhu MD, [facility] 01/30/20 1403 [id number] [id number] Sidhu MD, FAC /nt
[2020-01-30 16:05] VITALS: BP 122/66
[2020-01-30 20:37] VITALS: BP 133/65
[2020-01-30 23:57] VITALS: BP 151/70
[2020-01-31 03:47] LABS: HEMATOCRIT 31.7 % (42.0-52.0); HEMOGLOBIN 11.1 gm/dL (14.0-18.0)
[2020-01-31 04:27] VITALS: BP 136/65
[2020-01-31 09:32] VITALS: BP 129/67
[2020-01-31 11:04] VITALS: BP 129/67
[2020-01-31] MEDS ORDERED: TRAMADOL 50 MG50 MG PO (11:21)
[2020-01-31] MEDS ORDERED: OXYCODONE HCL 55 MG PO (11:23)
[2020-01-31] MEDS ORDERED: ELIQUIS2.5 MG PO (11:24)
--- NOTE | 2020-02-16 14:29 | OP ---
[address] [address] OPERATIVE REPORT Name: KILO KIMBALL Room: [address] Apollo Meza#: [id number] Admission: 01/30/20 Attend Phys: Mary Mcclure MD Discharge: 01/31/20 Date of : 40 Report #: [id number] THIS REPORT FOR: //name// cc: Eric Cleaning Bradley L. DO ~ THIS REPORT FOR: //name// CC: Eric Lees DATE OF SERVICE: 01/30/2020 Elio Lake DO dictating for Dr. Dick Lees DO. PREOPERATIVE DIAGNOSIS: Right knee degenerative joint disease. POSTOPERATIVE DIAGNOSIS: Right knee degenerative joint disease. OPERATION PERFORMED: Right total knee arthroplasty utilizing. IMPLANTS: Biomet Vanguard system with the following components: A. A size 65 cemented right cruciate retained femoral component. B. A size 79 cemented right fixed cruciate tibial tray. C. A 34 mm oval cemented 3 peg patellar button. D. A 12 anterior stabilized tibial bearing polyethylene. SURGEON: Dick Lees DO CORE ANALYST: Elio Lake DO SECOND CORE ANALYST: Lex Foss DO ANESTHESIA: General. ESTIMATED BLOOD LOSS: 225 mm. COMPLICATIONS: None. DRAINS: None. ANTIBIOTICS: 600 mg of clindamycin IV piggyback 30 minutes prior to surgery. GROSS PATHOLOGY: Surgical inspection of the knee revealed eburnated bone in all 3 compartments. Osteophytic lipping, [place] [address] OPERATIVE REPORT Name: KILO KIMBALL Room: [address] Apollo Meza#: [id number] Admission: 01/30/20 Attend Phys: Mary Mcclure MD Discharge: 01/31/20 Date of : 40 Report #: [id number] DESCRIPTION OF PROCEDURE: The patient was seen in the preoperative area. The correct procedure, procedure site were confirmed and all parties were in agreement. The patient was then taken to the operating suite and placed on the operating table in supine position. The patient was given the benefit of general anesthetic, a well-padded pneumatic tourniquet was placed at the proximal aspect of the right thigh, but was not inflated during the case, then the right lower extremity was thoroughly prepped and draped in usual sterile fashion. A timeout was performed verifying the correct patient, patient identity and procedure to be performed. All parties agreed. A midline skin incision was made over the right knee, carried down through the skin and subcutaneous tissue. Next, a standard medial parapatellar arthrotomy was performed with a scalpel. The patella was then everted laterally. The knee was then flexed to 110 degrees. The menisci thigh and the anterior cruciate ligaments were excised. Next, a drill hole in the distal femur was placed in the appropriate position. Intramedullary alignment lj set at 5 degrees valgus angulation with the distal femoral cutting block set to resect 10 mm, and held in position with pins. Distal femoral cut was made through the blocks. Next, the external tibial alignment guide was utilized referencing the medial aspect of the tibial tubercle, mid talus and second ray of the foot. It was set to resect 10 mm from the high lateral side and was held in position with pins. Proximal tibial cut was made through the block. The extension gap was checked with a 10 and was found to be symmetric. Next, the distal femoral sizing guide was placed on the femur and it was sized appropriately 3 degrees of external rotation, drill holes were drilled through the guide. A 4-in-1 distal femoral cutting block was impacted through the previous holes. Distal femoral cuts were made sequentially through the block. The knee was then hyperflexed and the tibia was appropriately sized. The tibial tray was placed in appropriate rotation and held with pins. An appropriately sized femur trial was then placed and a 12 spacer was then placed. Trial reduction was performed and the above implants, the 12 allowed full extension and flexion to 130 degrees with excellent stability and patellar tracking throughout motion. Flexion and extension gaps were symmetric. The patella was then cut utilizing a patellar reamer, then measured to be a 34. The tibia was then reamed and punched through the trial base plate. Trial components were removed. Pulsatile lavage was carried out to all cut bony structures. Two bags of Biomet cement were then mixed and pressurized into the bony cuts and placed on the final components. These were then impacted and held under pressure as the cement hardened. All excess cement was removed. A final trial reduction performed and the 12 spacer was selected and placed, deep tissue was injected with pain cocktail. The knee was then flexed to 60 degrees. Quad and capsule were closed with #1 Vicryl in a [id number]-zoksb fashion and a running #1 Stratafix. Subcutaneous tissue was closed with a 2-0 Monocryl in a simple interrupted fashion. Skin was closed with a 3-0 Stratafix and Dermabond. A sterile Mepilex dressing was applied. The patient was then awakened from anesthesia [place] [address] OPERATIVE REPORT Name: KILO KIMBALL Room: [address] Apollo Meza#: [id number] Admission: 01/30/20 Attend Phys: Mary Mcclure MD Discharge: 01/31/20 Date of : 40 Report #: [id number] table back to the PACU area for recovery. The patient tolerated the procedure well. Counts were performed and verified correct x 2. <ELECTRONICALLY SIGNED> By: Dick Lees DO 02/16/20 1429 2227 0002Dick Lees DO /nt
--- NOTE | 2020-02-24 11:20 | EKG ---
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: : 1940 Requested By: Dick Lees Order Number: [id number] Lukas MD: Waylon Sidhu Measurements Intervals [place] Rate: 59 P: 47 NC: 189 QRS: 80 QRSD: 114 T: -7 QT: 403 QTc: 400 Interpretive Statements Sinus rhythm Borderline intraventricular conduction delay Borderline T wave abnormalities Baseline wander in lead(s) V1,V2 Electronically Signed On 01-19-2020 14:18:05 DAIRY PROCESSING EQUIPMENT OPERATOR by Waylon Sidhu [email or web address] <ELECTRONICALLY SIGNED> By: Waylon Sidhu MD, [facility] 01/19/20 1418 4 Waylon Sidhu MD, [facility] /EPI
--- NOTE | 2020-02-24 11:42 | EKG ---
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
== END 2020-01-31 13:30 | disposition home or self-care (01) ==
LOC: M.ORTHSURG 05:43 → M.TBA 05:43 → M.PRE 08:25 → M.ORTHSURG 12:51 → M.TBA 12:51 → M.ORTHSURG 12:51 → M.PRE 13:27 → M.ORTHSURG 16:02
PROVIDERS: Orthopaedic Surgery; ADMIT Internal Medicine; ATTEND Internal Medicine
DX: M17.11 Unilateral primary osteoarthritis, right knee (principal); E78.5 Hyperlipidemia, unspecified; I25.10 Atherosclerotic heart disease of native coronary artery without angina pectoris; I35.0 Nonrheumatic aortic (valve) stenosis; N40.0 Benign prostatic hyperplasia without lower urinary tract symptoms; R55 Syncope and collapse; Z95.1 Presence of aortocoronary bypass graft

== ENCOUNTER 2020-02-08 19:23 | Emergency (ER) | payer MEDICARE ==
[~2020-02-08] VITALS: Ht 167.6 cm; Wt 77.1 kg
[~2020-02-08 19:23] MED LIST changes: +ELIQUIS2.5 MG PO; +OXYCODONE HCL 55 MG PO; +TRAMADOL 50 MG50 MG PO
[2020-02-08 20:11] LABS: ABSOLUTE BASOPHILS 0.1 thou/uL (0.0-0.2); ABSOLUTE EOSINOPHILS 0.3 thou/uL (0.0-0.7); ABSOLUTE LYMPHOCYTES 1.4 thou/uL (0.8-5.3); ABSOLUTE MONOCYTES 0.6 thou/uL (0.0-1.2); ABSOLUTE NEUTROPHILS 4.3 thou/uL (1.6-8.1); BASOPHILS 0.8 %; EOSINOPHILS 4.8 %; HEMOGLOBIN 9.6 gm/dL (14.0-18.0); LYMPHOCYTES 20.7 %; MCH 32.5 pg (26.0-34.0); MCHC 35.8 g/dL (28.0-37.0); MONOCYTES 9.4 %; NUCLEATED RBCS 0 /100WBC; PLATELET COUNT* 396 thou/uL (150-400); POLYS 64.3 %; RBC 2.97 mil/uL (4.50-6.00); RDW-CV 13.1 % (10.5-14.5); WBC 6.7 thou/uL (4.0-11.0)
[2020-02-08 20:19] LABS: CALCIUM 8.4 mg/dL (8.5-10.1); CREATININE 1.3 mg/dL (0.6-1.3); POTASSIUM 4.4 mmol/L (3.5-5.1)
[2020-02-08 20:24] LABS: ALBUMIN 3.1 g/dL (3.4-5.0); TOTAL BILIRUBIN 0.9 mg/dL (<0.1-1.0); TOTAL PROTEIN 7.2 g/dL (6.4-8.2)
[2020-02-08] MEDS ORDERED: CHLORPROMAZINE25 M1 PO (21:35)
[2020-02-08 22:12] VITALS: BP 143/59
--- NOTE | 2020-02-09 08:57 | EKG ---
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: [place] : 1940 Requested By: Natty Boudreaux Order Number: [id number] MD: Waylon Sidhu Measurements Intervals [place] Rate: 75 P: 50 MT: 177 QRS: 10 QRSD: 113 T: 3 QT: 384 QTc: 429 Interpretive Statements Sinus rhythm Borderline intraventricular conduction delay Borderline low voltage, extremity leads Baseline wander in lead(s) V4 Compared to ECG 01/30/2020 07:42:30 no change Electronically Signed On 02-09-2020 8:56:02 CDT by Waylon Sidhu [email or web address] <ELECTRONICALLY SIGNED> By: Waylon Sidhu MD, FACC 02/09/20 0856 37 37 Waylon Sidhu MD, [facility] /EPI
== END 2020-02-08 22:13 | disposition home or self-care (01) ==
LOC: M.ERS 19:23
PROVIDERS: Physician Assistant
DX: D64.9 Anemia, unspecified (principal); R06.6 Hiccough; R74.0 Nonspecific elevation of levels of transaminase and lactic acid dehydrogenase [LDH]; E78.00 Pure hypercholesterolemia, unspecified; K21.9 Gastro-esophageal reflux disease without esophagitis; M06.9 Rheumatoid arthritis, unspecified; Z88.0 Allergy status to penicillin; Z95.1 Presence of aortocoronary bypass graft

== ENCOUNTER 2020-02-19 16:53 | Observation (INO) | payer MEDICARE ==
[~2020-02-19] VITALS: Ht 170.2 cm; Wt 79.8 kg
--- NOTE | ~2020-02-19 | EMS ---
[address] [place] [place] [address] EMS Patient Care Report Name: KILO KIMBALL [id number] Admission: 02/19/20 Attend Phys: Discharge: Date of : 40 Report #: [id number] THIS REPORT FOR: //name// Report Transmitted: 02/19/2020 17:07 EMS Care Summary [facility]ident [id number] @ 02/19/2020 15:47 Incident Location [id number] [place] [address] Patient KILO KIMBALL Male, 79 Years 1940 Patient Address [address] [place] [address] Patient History Hypertension (HTN),Hyperlipidemia,Gastro-Esophageal Reflux Disease (GERD),Surgery,Cardiac Condition - Other, Patient Allergies Penicillin allergy, Patient Medications Oxycodone, Protonix, ASA, Eliquis, Nitroglycerin, Zetia, Valium, Tramadol, Miralax, Lipitor, Terazosin, Chief Complaint Constipation and stomach pain Disposition Transported No Lights/[place] Dispatch Reason Sick Person Transported To [facility] Narrative D: [facility] Dispatched for a 79 yr old male with constipation. [facility] responded nonemergent with no incident. [address] [place] [id number] EMS Patient Care Report Name: KILO KIMBALL [facility]: [facility]#: [id number] Admission: 02/19/20 Attend Phys: Discharge: Date of : 40 Report #: [id number] CC: On EMS arrival patient was laying left lateral in back bedroom in bed. Pt c/o lower abd pain and constipation. H: Pt stated that he had had constipation and stomach pain for the "last few days". Pt states that he had knee surgery on January 30, 2020 and was given narcotics for pain management. Pt stated that his stomach pain and constipation was much worse today. Pt stated that he had taken suppository, done an enema, and taken Miralax prior to calling EMS. Pt is negative on COVID screening. Pt states he has had a dry cough for a few years. A: See Assessment Tab. Initial assessment- Airway is patient, breathing is spontaneous and nonlabored, circulation is strong and regular. Pt is RDZ to PPTE. Skin- Warm dry and flushed. No bleeding or immediate life threat noted. R: Pt requested transport to [facility]. T: Vitals and assessments obtained. Pt was assisted to wheelchair then from wheelchair to cot. Pt was placed in position of comfort. Pt was secured to cot using straps provided and then secured into ambulance. Radio report given. Pt was continually reassessed. S: Pt complained of nausea toward end of transport and produced brown phlegm. Pt continuously complained of constipation and stomach pain during transport stating multiple times that he "want[ed] to " due to his pain. Pt stated that he had no suicide plan and said he wanted to "because I am in so much pain I don't care what happens". At receiving facility, patient care was transferred to nursing staff with verbal report given. RTS. Milo Hearn EMT-B Initial Vitals @16:13P: 79,R: 16,BP: 159/63,Pain: 10/10,GCS: 15,SpO2: 96,Revised Trauma: 12, @16:38P: 94,R: 16,BP: 153/92,Pain: 10/10,GCS: 15,SpO2: 98,Revised Trauma: 12, Assessments @16:00MENTAL:Time Oriented,Person Oriented,Place Oriented,Event Oriented,SKIN:HEENT:Head/Face: No Abnormalities,Neck/Airway: No Abnormalities,LUNG SOUNDS:General: Nausea,Left Upper: Distension,General: Absent Bowel Sounds,Right Upper: Distension,Right Lower: Distension,Left Lower: Distension,ABDOMEN:General: Nausea,Left Upper: Distension,General: Absent Bowel Sounds,Right Upper: Distension,Right Lower: Distension,Left Lower: Distension,PELVIS//GI:Incontinence,EXTREMITIES:Right Arm: Other,Capillary Refill: Left Upper: < 2 Sec,Left Arm: No Abnormalities,Left Leg: No Abnormalities,Right Leg: No Abnormalities,PULSE:Radial: 2+ Normal,NEURO:No Abnormalities,@16:40MENTAL:Place Oriented,Event Oriented,Time Oriented,[place] [address] EMS Patient Care Report Name: KILO KIMBALL [id number] Admission: 02/19/20 Attend Phys: Discharge: Date of : 40 Report #: [id number] Oriented,SKIN:HEENT:Head/Face: No Abnormalities,LUNG SOUNDS:General: Absent Bowel Sounds,General: Nausea,Left Lower: Distension,Right Lower: Distension,Right Upper: Distension,Left Upper: Distension,ABDOMEN:General: Absent Bowel Sounds,General: Nausea,Left Lower: Distension,Right Lower: Distension,Right Upper: Distension,Left Upper: Distension,PELVIS//GI:Incontinence,EXTREMITIES:Left Arm: No Abnormalities,Right Arm: No Abnormalities,Left Leg: No Abnormalities,Right Leg: No Abnormalities,PULSE:Radial: 2+ Normal,NEURO:No Abnormalities, Impression Constipation Procedures @16:00BLS AssessmentResponse: Unchanged Timeline 15:47,Call Received 15:47,Dispatched 15:51,En Route 15:58,On Scene 16:00,At Patient 16:00,BLS Assessment,Response: Unchanged 16:13,BP: 159/63 M,PULSE: 79,RR: 16 R,SPO2: 96 Ox,ETCO2: ,BG: ,PAIN: 10,GCS: 15, 16:15,Depart Scene 16:38,BP: 153/92 M,PULSE: 94,RR: 16 R,SPO2: 98 Ox,ETCO2: ,BG: ,PAIN: 10,GCS: 15, 16:49,At Destination 17:48,Call Closed Disclaimer v1.1 Copyright 2020 [employer] This EMS Care Summary contains data elements from the applicable legal record (which may be displayed differently). It is designed to provide pertinent information for the following purposes: continuity of care, clinical quality, and state data reporting. The complete legal record is available to ED staff and administrators of the receiving hospital in [employer] Patient Tracker. All data is provided "as is."
[~2020-02-19 16:53] MED LIST changes: +CHLORPROMAZINE25 M1 PO
[2020-02-19 16:57] VITALS: BP 132/75
[2020-02-19] MEDS ORDERED: MELOXICAM15 MG PO (16:58)
[2020-02-19] MEDS ORDERED: SENNA PLUS TAB1 EACH PO (16:59)
[2020-02-19] MEDS ORDERED: OXYCODONE HCL 55 MG PO (17:00)
[2020-02-19] MEDS ORDERED: LAXATIVE5 M1 PO (17:00)
[2020-02-19 17:14] LABS: HEMATOCRIT 32.6 % (42.0-52.0); HEMOGLOBIN 11.1 gm/dL (14.0-18.0); MCHC 34.1 g/dL (28.0-37.0); MCV 90.9 fL (80.0-100.0); MPV 7.6 fl. (7.2-11.1); NUCLEATED RBCS 0 /100WBC; PLATELET COUNT* 424 thou/uL (150-400); RBC 3.59 mil/uL (4.50-6.00); RDW-CV 13.4 % (10.5-14.5)
[2020-02-19 17:32] LABS: CREATININE 1.3 mg/dL (0.6-1.3); POTASSIUM 4.1 mmol/L (3.5-5.1)
[2020-02-19 17:36] LABS: ALBUMIN 3.8 g/dL (3.4-5.0); TOTAL BILIRUBIN 0.6 mg/dL (<0.1-1.0); TOTAL PROTEIN 7.7 g/dL (6.4-8.2)
[2020-02-19 17:43] LABS: ABSOLUTE EOSINOPHILS 0.1 thou/uL (0.0-0.7); ABSOLUTE LYMPHOCYTES 0.5 thou/uL (0.8-5.3); ABSOLUTE MONOCYTES 0.1 thou/uL (0.0-1.2); ABSOLUTE NEUTROPHILS 12.2 thou/uL (1.6-8.1); ANISOCYTOSIS 1+; PLATELET ESTIMATE INCREASED; POIKILOCYTOSIS Occasional; POLYCHROMASIA Occasional
[2020-02-19 19:48] LABS: URINE BILIRUBIN NEGATIVE (Negative); URINE BLOOD NEGATIVE (Negative); URINE CLARITY CLEAR; URINE COLOR YELLOW; URINE GLUCOSE-RANDOM NEGATIVE (Negative); URINE KETONES NEGATIVE (Negative); URINE LEUKOCYTES NEGATIVE (Negative); URINE NITRITE NEGATIVE (Negative); URINE PROTEIN NEGATIVE (Negative); URINE SPECIFIC GRAVITY 1.025 (1.005-1.030); URINE UROBILINOGEN 0.2 E.U./dl (0.2-1.0)
[2020-02-19 20:53] VITALS: BP 143/66
[2020-02-19 21:00] VITALS: BP 132/61
[2020-02-19] MEDS ORDERED: DIAZEPAM 5 MG5 M1 PO (22:43)
[2020-02-20 00:42] VITALS: BP 123/58
--- NOTE | 2020-02-20 05:08 | NUR ---
REPORT RECIEVED FROM ER. PT ORIENTED TO ROOM, CALL LIGHT SHOWN, FALL AGREEMENT WENT OVER, PT STATED UNDERSTANDING. ADMISSION DOCUMENTED. IV PATENT, FLUIDS INFUSING. PT STATES HIS PAIN HAS RESOLVED. MEDS GIVEN PER E-MAR. PT HAS HAD SEVERAL BM'S THIS SHIFT. FALL PRECAUTIONS IN PLACE. WILL CONTINUE WITH PLAN OF CARE.
[2020-02-20 08:00] VITALS: BP 149/64
--- NOTE | 2020-02-20 09:10 | EKG ---
[place] [address] ELECTROCARDIOGRAM REPORT Name: LITODIANAKILO Hilario Room: [address] M.R.#: [id number] Admission: 02/19/20 Attend Phys: Dwain oneal Sa Discharge: Date of : 40 Date of Service: 02/19/20 1726 Report #: [id number] THIS REPORT FOR: //name// [facility] ED Test Date: 2020-02-19 Test Time: 17:26:33 Pat Name: KILO KIMBALL Department: Room: 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 : 1940 Requested By: Natty Boudreaux Order Number: [id number] MD: Waylon Sidhu Measurements Intervals [place] Rate: 83 P: 30 WI: 167 QRS: -21 QRSD: 112 T: 35 QT: 368 QTc: 433 Interpretive Statements Sinus rhythm Abnormal R-wave progression, late transition Inferior infarct, old Compared to ECG 02/08/2020 19:38:01 no change Electronically Signed On 02-20-2020 9:09:26 CDT by Waylon Sidhu [email or web address] <ELECTRONICALLY SIGNED> By: Waylon Sidhu MD, [facility] 02/20/20 0909 1726 1726 aWylon Sidhu MD, [facility] /EPI
[2020-02-20 10:10] LABS: ABSOLUTE MONOCYTES 0.6 thou/uL (0.0-1.2); ABSOLUTE NEUTROPHILS 7.9 thou/uL (1.6-8.1); BASOPHILS 0.4 %; EOSINOPHILS 0.2 %; HEMATOCRIT 28.9 % (42.0-52.0); HEMOGLOBIN 9.9 gm/dL (14.0-18.0); LYMPHOCYTES 10.4 %; MCH 31.6 pg (26.0-34.0); MCHC 34.3 g/dL (28.0-37.0); MONOCYTES 6.3 %; MPV 7.7 fl. (7.2-11.1); NUCLEATED RBCS 0 /100WBC; POLYS 82.7 %; RBC 3.14 mil/uL (4.50-6.00); RDW-CV 13.7 % (10.5-14.5); WBC 9.6 thou/uL (4.0-11.0)
[2020-02-20 10:11] LABS: PLATELET COUNT* 318 thou/uL (150-400)
[2020-02-20 10:31] LABS: ALBUMIN 3.2 g/dL (3.4-5.0); CALCIUM 7.9 mg/dL (8.5-10.1); CREATININE 1.2 mg/dL (0.6-1.3); TOTAL BILIRUBIN 0.8 mg/dL (<0.1-1.0); TOTAL PROTEIN 6.6 g/dL (6.4-8.2)
[2020-02-20 11:46] VITALS: BP 149/64
[2020-02-20 13:44] VITALS: BP 149/64
--- NOTE | 2020-02-20 13:45 | NUR ---
ASSESSMENT COMPLETED DOCUMENTED THIS MORINING...PATIENT UP FREQUENTLY TO BSC FOR BOWELS TO MOVE. NS AT 100CC/HR INFUSING IN RIGHT A/C. VSS. DR. RODRIGUEZ IN AND ORDERS TO DC REC'D. DC INSTRUTIONS GIVEN TO PATIENT WITH UNDERSTANDING VERBALIZED AND SIGNATURE OBTAINED. SIG OTHER BROUGHT CLOTHES FROM HOME, PATIENT ABLE TO DRESS SELF AND WAS DCD VIA WC WITH DC INSTRUCTIONS IN HAND TO FAMILY CAR IN GOOD CONDITION AT 1315.
== END 2020-02-20 13:15 | disposition home or self-care (01) ==
LOC: M.ERS 16:53 → M.2W 20:02 → M.TBA-ER 20:02 → M.2W 21:00
PROVIDERS: Internal Medicine; Physician Assistant; ADMIT Family Medicine
DX: K56.41 Fecal impaction (principal); E78.00 Pure hypercholesterolemia, unspecified; M06.9 Rheumatoid arthritis, unspecified; K21.9 Gastro-esophageal reflux disease without esophagitis; K59.00 Constipation, unspecified; D64.9 Anemia, unspecified; E78.5 Hyperlipidemia, unspecified; D72.829 Elevated white blood cell count, unspecified; Z98.890 Other specified postprocedural states; Z95.1 Presence of aortocoronary bypass graft

== ENCOUNTER → 2020-07-12 | Outpatient (CLI) | payer MEDICARE ==
[~2020-07-12] MED LIST changes: +DIAZEPAM 5 MG5 M1 PO; +LAXATIVE5 M1 PO; +SENNA PLUS TAB1 EACH PO
--- NOTE | 2020-07-12 15:21 | 2DMMODE ---
[place] [address] 2 D/M-MODE ECHOCARDIOGRAM Name: KILO KIMBALL Room: [facility]#: [id number] Admission: 07/12/20 Attend Phys: Po Jordan, Discharge: Date of : 40 Date of Service: 07/12/20 1521 Report #: [id number] THIS REPORT FOR: cc: Eric Cleaning Bradley L. DO Liston, Michael J. MD [facility] ~ APPROVED REPORT Study performed: 07/12/2020 11:19:25 EXAM: Comprehensive 2D, Doppler, and color-flow Echocardiogram Patient Location: Out-Patient BSA: 1.87 HR: 53 bpm Rhythm: NSR Other Information Study Quality: Good Indications Aortic Valve Disease 2D Dimensions IVSd: 11.91 (7-11mm) LVOT Diam: 21.44 (18-24mm) LVDd: 49.74 mm PWd: 10.85 (7-11mm) Ascending Ao: 31.71 (22-36mm) LVDs: 32.52 (25-40mm) Aortic Root: 32.43 mm Volumes Left Atrial Volume (Systole) LA ESV Index: 31.20 mL/m2 Aortic Valve AoV Peak Dudley.: 1.90 m/s AO Peak Gr.: 14.49 mmHg LVOT Max P.17 mmHg AO Mean Gr.: 8.57 mmHg LVOT Mean P.61 mmHg LVOT Max V: 0.54 m/s AO V2 VTI: 47.77 cm LVOT Mean V: 0.36 m/s WINDY (VTI): 1.15 cm2 LVOT V1 VTI: 15.15 [place] [address] 2 D/M-MODE ECHOCARDIOGRAM Name: KILO KIMBALL Room: [facility]#: [id number] Admission: 07/12/20 Attend Phys: Po Jordan, Discharge: Date of : 40 Date of Service: 07/12/20 1521 Report #: [id number] E/A Ratio: 1.58 MV Decel. Time: 153.32 ms MV E Max Dudley.: 1.00 m/s MV PHT: 44.46 ms MVA (PHT): 4.95 cm2 TDI E/Lateral E': 10.00 E/Medial E': 12.50 Medial E' Dudley.: 0.08 m/s Lateral E' Dudley.: 0.10 m/s Pulmonary Valve PV Peak Dudley.: 1.06 m/s PV Peak Gr.: 4.50 mmHg Tricuspid Valve RAP Estimate: 5.00 mmHg TR Peak Gr.: 20.08 mmHg RVSP: 25.00 mmHg PA Pressure: 25.00 mmHg Left Ventricle The left ventricle is normal size. There is normal LV segmental wall motion. There is normal left ventricular wall thickness. Left ventricular systolic function is normal. LVEF is 55-60%. Transmitral Doppler flow pattern suggests impaired LV relaxation. Right Ventricle The right ventricle is normal size. The right ventricular systolic function is normal. Atria The left atrium size is normal. The right atrium size is normal. Aortic Valve Moderate aortic valve sclerosis. No aortic regurgitation is present. Moderate aortic stenosis. Mitral Valve The mitral valve is normal in structure. Trace mitral regurgitation. No evidence of mitral valve stenosis. Tricuspid Valve The tricuspid valve is normal in structure. Mild tricuspid regurgitation. No pulmonary [place] [address] 2 D/M-MODE ECHOCARDIOGRAM Name: KILO KIMBALL Sulaiman [id number] Admission: 07/12/20 Attend Phys: Po Jordan, Discharge: Date of : 40 Date of Service: 07/12/20 1521 Report #: [id number] The pulmonary valve is normal in structure. Trace pulmonic regurgitation. Great Vessels The aortic root is normal in size. IVC is normal in size and collapses >50% with inspiration. Pericardium There is no pericardial effusion. <Conclusion> The left ventricle is normal size. There is normal left ventricular wall thickness. Left ventricular systolic function is normal. LVEF is 55-60%. Transmitral Doppler flow pattern suggests impaired LV relaxation. Moderate aortic valve sclerosis. Moderate aortic stenosis. Trace mitral regurgitation. Mild tricuspid regurgitation. No pulmonary hypertension. IVC is normal in size and collapses >50% with inspiration. <ELECTRONICALLY SIGNED> By: Po Jordan MD, FACC 07/12/20 1521 152 152 Po Jordan MD, FACC /INF
== END ==
LOC: M.CRD 10:56
PROVIDERS: ATTEND Internal Medicine Cardiovascular Disease
DX: I08.2 Rheumatic disorders of both aortic and tricuspid valves (principal)

== ENCOUNTER 2020-11-08 15:05 | Inpatient (IN) | payer MEDICARE ==
[~2020-11-08] VITALS: Ht 170.2 cm; Wt 77.6 kg
--- NOTE | ~2020-11-08 | EMS ---
[facility] [address] [id number] EMS Patient Care Report Name: KILO KIMBALL Room: [facility]#: [id number] Admission: 11/08/20 Attend Phys: Discharge: Date of : 40 Report #: [id number] THIS REPORT FOR: //name// Report Transmitted: 11/08/2020 15:06 EMS Care Summary [facility] Incident [id number] @ 11/08/2020 13:17 Incident Location [id number] [place] [address] Patient KILO KIMBALL Male, 80 Years 1940 Patient Address [id number] [place] [address] Patient History Hypertension (HTN),Hyperlipidemia,Gastro-Esophageal Reflux Disease (GERD),Depression,Anxiety, Patient Allergies Penicillin allergy, Patient Medications Viagra, Aspirin, Nitroglycerin, Meloxicam, Atorvastatin, Diazepam, Chief Complaint Shortness of breath Disposition Transported No Lights/[place] Dispatch Reason Breathing Problem Transported To [facility] Narrative Dispatch: [facility] was dispatched for a male patient experiencing shortness of breath with a known Covid-19 exposure. Med 1 copied tones and had a delayed response time due to donning all PPE. Med 1 went en route emergent. [address] [id number] EMS Patient Care Report Name: KILO KIMBALL Room: [facility]#: [id number] Admission: 11/08/20 Attend Phys: Discharge: Date of : 40 Report #: [id number] Chief Complaint: Med 1 arrived on scene to find the patient sitting upright in his chair. Patient states he has shortness of breath and generalized weakness. Patient's tested positive for Covid-19 a week prior. Patient is alert and does not appear to be in any distress. History of present illness/CHELSY: Patient states he had a Covid-19 test performed on 11/07/20 but has not received results back. Patient states he has had a cough for "a few days" and if he coughs too hard he gets dizzy and light headed. Assessment: Airway: Clear, patent, and self maintained. Breathing: Clear, and equal bilaterally. Non labored. Circulation: Skin is pink, warm, and dry. Strong radial pulses. Disability: A&OX4, GCS 15. Exposures: No life threats were found. See "assessments" tab for further. Reason for ambulance: Patient is experiencing shortness of breath and generalized weakness. Requesting EMS transport to [facility]. Treatments: ALS assessment. 12 lead EKG showing normal sinus rhythm. Albuterol and Atrovent breathing treatment. 20G IV LAC. 4 liters O2 ETCO2 nasal cannula showing non obstructed waveforms. Vitals monitored throughout transport. Summary: Med 1 had a delayed on scene time due to the patient stating he was "undecided" if he wanted EMS treatment and transport. Med 1 called for a lift assist by [facility]. With the assistance of EMS, the patient was moved onto the cot via stair chair. Patient was secured in place and placed into the ambulance for transport. The patient was given an A&A breathing treatment. Med 1 went en route non emergent to [facility]. An IV was established, along with O2 via nasal cannula. The patient's overall condition improved as the patient stated he "felt better after the breathing treatment." Patient's cough resolved as well. Radio report was given and no further questions or orders were received. Med 1 arrived at destination and the patient was taken to room 16 in the ED. The patient was sheet transferred onto the bed. Report was given and signatures and paperwork were received. Med 1 returned back in service. Initial Vitals @14:58BP: 137/72, @14:16P: 38,SpO2: 96, @14:51P: 85,R: 20,EtCO2: 33,SpO2: 98,DC Suspected: false @14:41P: 83,R: 21,BP: 125/74,EtCO2: 32,SpO2: 98, @13:51P: 75,SpO2: 95, @13:44P: 76,SpO2: 97,DC Suspected: [place] [address] EMS Patient Care Report Name: KILO KIMBALL Room: [facility]#: [id number] Admission: 11/08/20 Attend Phys: Discharge: Date of : 40 Report #: [id number] @13:42R: 20,BP: 116/82,GCS: 15,Temp: 98.2F,Glucose: 58,SpO2: 97,Revised Trauma: 12, @14:24BP: 116/62,GCS: 15,SpO2: 98, @14:56P: 86,BP: 124/73,SpO2: 96, @14:26P: 80,BP: 146/76,SpO2: 100, @14:36P: 82,R: 20,EtCO2: 32,SpO2: 99, @14:21P: 76,SpO2: 100, @14:46P: 84,R: 21,EtCO2: 33,SpO2: 98, @14:31P: 78,R: 16,SpO2: 100, Assessments @13:30MENTAL:Person Oriented,Time Oriented,Place Oriented,Event Oriented,SKIN:HEENT:LUNG SOUNDS:ABDOMEN:PELVIS//GI:EXTREMITIES:Capillary Refill: Right Upper: < 2 Sec,PULSE:Radial: 2+ Normal,NEURO:@14:30MENTAL:Person Oriented,Time Oriented,Event Oriented,Place Oriented,SKIN:HEENT:LUNG SOUNDS:ABDOMEN:PELVIS//GI:EXTREMITIES:PULSE:Radial: 2+ Normal,NEURO: Impression COVID-19 - Exposure to confirmed patient Procedures @13:30ALS AssessmentResponse: UnchangedSucceeded@14:15Oxygen FlowRate: 4 Device: Nasal Cannula (NC) Response: UnchangedSucceeded@14:20Saline Lock 0cc (20 ga) Site: Antecubital-LeftResponse: UnchangedSucceeded@14:16Atrovent - 0.5 Milligrams (mg) - NebulizedResponse: Improved@14:16Albuterol - 2.5 Milligrams (mg) - NebulizedResponse: Improved@13:4412-Lead ECGResponse: UnchangedSucceeded Timeline 13:17,Call Received 13:17,Dispatched 13:22,En Route 13:26,On Scene 13:28,At Patient 13:30,ALS Assessment,Response: UnchangedSucceeded, 13:42,BP: 116/82 M,PULSE: ,RR: 20 R,SPO2: 97 Ox,ETCO2: ,B,PAIN: ,GCS: 15, 13:44,12-Lead ECG,Response: UnchangedSucceeded, 13:44,BP: / M,PULSE: 76,RR: R,SPO2: 97 Ox,ETCO2: ,BG: ,PAIN: ,GCS: , 13:51,BP: / M,PULSE: 75,RR: R,SPO2: 95 Ox,ETCO2: ,BG: ,PAIN: ,GCS: , 14:15,Oxygen FlowRate: 4 Device: Nasal Cannula (NC) Response: UnchangedSucceeded, 14:16,Atrovent - 0.5 Milligrams (mg) - Nebulized,Response: Improved 14:16,Albuterol - 2.5 Milligrams (mg) - Nebulized,Response: Improved 14:16,BP: / M,PULSE: 38,RR: R,SPO2: 96 Ox,ETCO2: ,BG: ,PAIN: ,GCS: , 14:20,Saline Lock 0cc 20 ga Site: Antecubital-Left,Response: UnchangedSucceeded, 14:21,BP: / M,PULSE: 76,RR: R,SPO2: 100 Ox,ETCO2: ,BG: ,PAIN: ,GCS: , 14:24,BP: 116/62 M,PULSE: ,RR: R,SPO2: 98 Ox,ETCO2: ,BG: ,PAIN: ,GCS: 15, [place] [address] EMS Patient Care Report Name: KILO KIMBALL [id number] Admission: 11/08/20 Attend Phys: Discharge: Date of : 40 Report #: [id number] 14:25,Depart Scene 14:26,BP: 146/76 M,PULSE: 80,RR: R,SPO2: 100 Ox,ETCO2: ,BG: ,PAIN: ,GCS: , 14:31,BP: / M,PULSE: 78,RR: 16 R,SPO2: 100 Ox,ETCO2: ,BG: ,PAIN: ,GCS: , 14:36,BP: / M,PULSE: 82,RR: 20 R,SPO2: 99 Ox,ETCO2: 32 ,BG: ,PAIN: ,GCS: , 14:41,BP: 125/74 M,PULSE: 83,RR: 21 R,SPO2: 98 Ox,ETCO2: 32 ,BG: ,PAIN: ,GCS: , 14:46,BP: / M,PULSE: 84,RR: 21 R,SPO2: 98 Ox,ETCO2: 33 ,BG: ,PAIN: ,GCS: , 14:51,BP: / M,PULSE: 85,RR: 20 R,SPO2: 98 Ox,ETCO2: 33 ,BG: ,PAIN: ,GCS: , 14:56,BP: 124/73 M,PULSE: 86,RR: R,SPO2: 96 Ox,ETCO2: ,BG: ,PAIN: ,GCS: , 14:58,BP: 137/72 M,PULSE: ,RR: R,SPO2: Ox,ETCO2: ,BG: ,PAIN: ,GCS: , 15:02,At Destination 15:45,Call Closed Disclaimer v1.1 Copyright 2020 [employer] This EMS Care Summary contains data elements from the applicable legal record (which may be displayed differently). It is designed to provide pertinent information for the following purposes: continuity of care, clinical quality, and state data reporting. The complete legal record is available to ED staff and administrators of the receiving hospital in [employer]'s Patient Tracker. All data is provided "as is."
[2020-11-08 15:06] VITALS: BP 146/80
[2020-11-08 15:48] LABS: BE 0.5 mmol/L (-2 to +3); PO2 94.5 mmHg (75.0-100.0); pH 7.445 (7.340-7.450)
[2020-11-08 16:04] LABS: ABSOLUTE LYMPHOCYTES 0.6 thou/uL (0.8-5.3); ABSOLUTE MONOCYTES 0.6 thou/uL (0.0-1.2); ABSOLUTE NEUTROPHILS 5.8 thou/uL (1.6-8.1); BASOPHILS 0.2 %; HEMATOCRIT 37.1 % (42.0-52.0); HEMOGLOBIN 12.9 gm/dL (14.0-18.0); LYMPHOCYTES 9.2 %; MCHC 34.8 g/dL (28.0-37.0); MCV 89.2 fL (80.0-100.0); MPV 8.4 fl. (7.2-11.1); NUCLEATED RBCS 0 /100WBC; PLATELET COUNT* 168 thou/uL (150-400); POLYS 82.6 %; RBC 4.15 mil/uL (4.50-6.00); RDW-CV 13.3 % (10.5-14.5)
[2020-11-08 16:15] LABS: CALCIUM 8.8 mg/dL (8.5-10.1); CREATININE 1.6 mg/dL (0.6-1.3); POTASSIUM 3.4 mmol/L (3.5-5.1)
[2020-11-08 16:17] LABS: MAGNESIUM 2.3 mg/dL (1.8-2.4); TOTAL BILIRUBIN 0.7 mg/dL (<0.1-1.0); TOTAL PROTEIN 7.7 g/dL (6.4-8.2)
[2020-11-08 16:25] LABS: URINE BILIRUBIN NEGATIVE (Negative); URINE BLOOD NEGATIVE (Negative); URINE CLARITY CLEAR; URINE COLOR YELLOW; URINE GLUCOSE-RANDOM NEGATIVE (Negative); URINE KETONES NEGATIVE (Negative); URINE LEUKOCYTES-REFLEX NEGATIVE (Negative); URINE NITRITE-REFLEX NEGATIVE (Negative); URINE PROTEIN NEGATIVE (Negative); URINE UROBILINOGEN 0.2 E.U./dl (0.2-1.0)
[2020-11-08 18:54] VITALS: BP 123/70
[2020-11-08 19:03] VITALS: BP 123/73
[2020-11-08 21:25] VITALS: BP 148/68
[2020-11-09] VITALS: BP 128/55
--- NOTE | 2020-11-09 02:27 | NUR ---
ASSUMED CARE OF PT AT 1900. PT IS ALERT AND ORIENTED. VSS. PERRLA. NO COMPLAINTS OF PAIN. PT IS ON 2 LITERS OF O2. PT IS IN SINUS RYTHM ON THE TELEMETRY. PT IS RESTING COMFORTABLY IN BED. RESPIRATIONS ARE EVEN AND NONLABORED. WILL CONTINUE TO MONITOR PT.
[2020-11-09 04:00] VITALS: BP 127/56
[2020-11-09 04:07] LABS: WBC 4.5 thou/uL (4.0-11.0)
[2020-11-09 04:09] LABS: HEMOGLOBIN 12.3 gm/dL (14.0-18.0); MCH 31.1 pg (26.0-34.0); MCV 88.9 fL (80.0-100.0); MPV 8.8 fl. (7.2-11.1); NUCLEATED RBCS 0 /100WBC; PLATELET COUNT* 171 thou/uL (150-400); RBC 3.94 mil/uL (4.50-6.00)
[2020-11-09 04:15] LABS: CALCIUM 8.6 mg/dL (8.5-10.1); CREATININE 1.7 mg/dL (0.6-1.3)
[2020-11-09 05:19] LABS: ABSOLUTE LYMPHOCYTES 0.3 thou/uL (0.8-5.3); ABSOLUTE MONOCYTES 0.2 thou/uL (0.0-1.2); ABSOLUTE NEUTROPHILS 4.1 thou/uL (1.6-8.1); PLATELET ESTIMATE ADEQUATE
[2020-11-09 07:55] VITALS: BP 125/65
[2020-11-09 14:18] VITALS: BP 116/55
[2020-11-09 18:07] VITALS: BP 140/68
--- NOTE | 2020-11-09 18:59 | NUR ---
PT A&OX4 VSS, PT 95% ON 2L O2. PT UP AD MARIAJOSE. IV TO LAC PATENT, NS AT 100ML/HOUR. PT SINUS ON MONITOR. PT DENIES PAIN. SKIN IN TACT. PT RESTS IN BED WITH CALL IGHT AND PHONE IN REACH, WILL CONTINUE TO MONITOR
[2020-11-09 20:30] VITALS: BP 136/66
[2020-11-10] VITALS (7 sets, daily range): BP systolic 125–138; BP diastolic 56–69
--- NOTE | 2020-11-10 04:01 | NUR ---
ASSUMED CARE OF PT AT 1900. PT IS ALERT AND ORIENTED. VSS. PERRLA. NO COMPLAINTS OF PAIN. STEADY GAIT. PT IS ON ROOM AIR. PT IS IN SINUS RYTHM ON THE TELEMETRY. PT IS RESTING COMFORTABLY IN BED. RESPIRATIONS ARE EVEN AND NONLABORED. WILL CONTINUE TO MONITOR PT.
[2020-11-10 05:10] LABS: ABSOLUTE LYMPHOCYTES 0.5 thou/uL (0.8-5.3); ABSOLUTE MONOCYTES 0.4 thou/uL (0.0-1.2); ABSOLUTE NEUTROPHILS 8.3 thou/uL (1.6-8.1); HEMATOCRIT 33.8 % (42.0-52.0); HEMOGLOBIN 11.7 gm/dL (14.0-18.0); LYMPHOCYTES 5.4 %; MCH 31.1 pg (26.0-34.0); MCHC 34.6 g/dL (28.0-37.0); MCV 89.8 fL (80.0-100.0); MONOCYTES 4.5 %; MPV 8.7 fl. (7.2-11.1); NUCLEATED RBCS 0 /100WBC; PLATELET COUNT* 171 thou/uL (150-400); POLYS 90.1 %; RBC 3.76 mil/uL (4.50-6.00); RDW-CV 13.2 % (10.5-14.5); WBC 9.2 thou/uL (4.0-11.0)
[2020-11-10 05:29] LABS: ALBUMIN 3.2 g/dL (3.4-5.0); CALCIUM 8.5 mg/dL (8.5-10.1); CREATININE 1.2 mg/dL (0.6-1.3); POTASSIUM 4.2 mmol/L (3.5-5.1); TOTAL BILIRUBIN 0.6 mg/dL (<0.1-1.0); TOTAL PROTEIN 6.9 g/dL (6.4-8.2)
[2020-11-10] MEDS ORDERED: VIBRAMYCIN 100100 M2 PO (09:38)
[2020-11-10] MEDS ORDERED: TESSALON PERLE100 MG PO (09:38)
[2020-11-10] MEDS ORDERED: DEXAMETHASONE1 MG PO (09:38)
[2020-11-10] MEDS ORDERED: PROTONIX40 M4 PO (09:39)
--- NOTE | 2020-11-10 13:45 | NUR ---
PT A&OX4 VSS. PT UP AD MARIAJOSE, GAIT STEADY. IV TO LAC DC'D PRIOR TO PT LEAVING UNIT. PT REMAINS SINUS ON MONITOR. PT SAT 95% ON ROOM AIR. PT STATES UNDERSTANDING OF DC INSTRUCIOTNS, FOLLOW-UP INFO PROVIDED AND RX TRANMITTED TO PHARMACY OF PT CHOICE. PT EDUCATED REGARDING ISOLATION PRECAUTIONS R/T COVID. PT DRESSED INDEPENDENTLY. PT LEFT UNIT IN WC WITH ALL PERSONAL BELONGINGS.
--- NOTE | 2020-11-10 14:10 | NUR ---
CM SPOKE TO THE PT TO COMPLETE CM ASSESSMENT. PT A&O, INDEPENDENT WITH ADL'S. PT BIG SANDY. CM SPOKE TO THE PT VIA HOSPITAL ROOM PHONE HE IS COVID POSITIVE. PT INFORMS THAT IS SPOUSE IS COVID POSITIVE WELL. PT USES A WALKER FOR MOBILITY. PT HAS HX OF HH A FEW YEARS AGO WITH [facility] AND IS OPEN TO HH WITH [facility] AT D/C. PHYSICIAN INFORMS THAT PT IS READY TO D/C HOME TODAY WITH HH. CM FA[facility]ED REFERRAL TO [facility], [facility], AND [facility] . NONE WERE ABLE TO ACCEPT PT HE IS COVID POSITVE [facility] AND [facility] ARE AT CAPACITY AT THIS TIME AND UNABLE TO STAFF PT D/T COVID AT THIS TIME/ [facility] UNABLE TO STAFF PT FOR HH THEY DONT HAVE ANY NURSES AVAILABLE IN THE PT'S AREA AT THIS TIME. CM FAXED HH REFERRAL TO [facility] AND AM AWAITING A CALLBACK TO DISCUSS ABIITY TO ACCEPT PT FOR HH. [facility] PHONE: [phone] FAX: [phone]
== END 2020-11-10 18:00 | disposition home health service (06) | DRG 177 ==
LOC: M.ERS 15:05 → M.ORTHSURG 17:01 → M.TBA-ER 17:01 → M.ORTHSURG 18:57
PROVIDERS: Personal Emergency Response Attendant; ADMIT Internal Medicine; ATTEND Internal Medicine
DX: U07.1 COVID-19 (principal); J12.89 Other viral pneumonia; J96.01 Acute respiratory failure with hypoxia; N17.9 Acute kidney failure, unspecified; E87.1 Hypo-osmolality and hyponatremia; R65.10 Systemic inflammatory response syndrome (SIRS) of non-infectious origin without acute organ dysfunction; I25.10 Atherosclerotic heart disease of native coronary artery without angina pectoris; M19.90 Unspecified osteoarthritis, unspecified site; M06.9 Rheumatoid arthritis, unspecified; K21.9 Gastro-esophageal reflux disease without esophagitis; E78.00 Pure hypercholesterolemia, unspecified; Z95.1 Presence of aortocoronary bypass graft; Z79.82 Long term (current) use of aspirin; Z79.01 Long term (current) use of anticoagulants; Z79.899 Other long term (current) drug therapy; Z88.0 Allergy status to penicillin

== ENCOUNTER 2020-11-11 10:59 | Inpatient (IN) | payer MEDICARE ==
[~2020-11-11] VITALS: Ht 167.6 cm; Wt 79.8 kg
--- NOTE | ~2020-11-11 | EMS ---
[address] [address] EMS Patient Care Report Name: KILO KIMBALL [id number] Admission: 11/11/20 Attend Phys: Discharge: Date of : 40 Report #: [id number] THIS REPORT FOR: //name// Report Transmitted: 11/11/2020 11:51 EMS Care Summary [facility] Incident [id number] @ 11/11/2020 09:44 Incident Location [address] [place] [address] Patient KILO KIMBALL Male, 80 Years 1940 Patient Address [address] [place] [address] Patient History Angina,Cardiac Arrythmia,Syncope,Pneumonia,Anemia,Coronary Artery Disease (CAD), Patient Allergies Penicillin allergy, Patient Medications Tramadol, Terazosin, Dexamethasone, Diazepam, Nitroglycerin, Doxycycline, Atorvastatin, Aspirin, Pantoprazole, Oxycodone, Chief Complaint cough Disposition Transported No Lights/[place] Dispatch Reason Sick Person Transported To [facility] Narrative Dispatch: Med 1 responded to the above address for COIVD + pt with cough. C/C: cough; Pt alert/oriented appropriately. No distress. No apparent life [address] [address] EMS Patient Care Report Name: KILO KIMBALL Room: [facility]#: [id number] Admission: 11/11/20 Attend Phys: Discharge: Date of : 40 Report #: [id number] threats. Pt is full code status at this time. HPI/NICK/CHELSY: Upon EMS arrival pt was coughing sitting upright; Pt fiance reported pt is COVID + released from [facility] last night; pt has continued to cough. Pt was able to ambulate with assistance to the cot; loaded secured via seat belt straps; sitting position. Pt finance gave current list of meds with new prescriptions she had filled last night after dx. Pt was prescribed 3 new meds for COVID management. Pt was given an antibiotic, steroid, cough suppressant. Pt has not yet taken any full dosage of the 3 new prescribed medications. Once loaded further assessment performed. Assessment: Primary Airway- Open, Patent, Self Maintained Breathing- Non Labored, Regular, RA Circulation- Strong, Radial, Regular LOC: GCS 15, A/O x4, PPTE see detailed assessment for further information per PT PCR. Reason for Transport: cough. Treatment: surgical mask application, assessment, vitals including BG/Temp., vehicle monitor technician, 12 Lead ECG, IV access, Medication administration, ETCO2 NC used to monitor pt oxygenation, transport. Summary of call: Pt transported to [facility] per pt request. Pt condition remained stable during transport. Radio report given 20 mins prior to ED arrival. Verbal report given bedside to receiving RN; ED Bed 13 with copy of 12 Lead upon transfer of care. EOR Valerie Akbar [id number] Initial Vitals @10:30P: 80,R: 22,BP: 126/92,GCS: 15,EtCO2: 31,SpO2: 95,Revised Trauma: 12, @10:45P: 78,R: 20,BP: 112/58,GCS: 15,EtCO2: 31,SpO2: 95,Revised Trauma: 12, @10:55P: 81,R: 18,BP: 114/60,Pain: 0/10,GCS: 15,EtCO2: 31,SpO2: 94,Revised Trauma: 12,AK Suspected: false @10:15P: 79,R: 14,BP: 120/60,Pain: 0/10,GCS: 15,Temp: 98.7F,Glucose: 84,EtCO2: 31,SpO2: 95,Revised Trauma: 12,AK Suspected: false @10:21P: 83,R: 18,GCS: 15,EtCO2: 32,SpO2: 94,AK Suspected: false Assessments @10:05MENTAL:Person Oriented,Time Oriented,Place Oriented,Event Oriented,SKIN:HEENT:LUNG SOUNDS:General: Other,Left Upper: Distension,Right Upper: Distension,Left Lower: Distension,Right Lower: Distension,ABDOMEN:General: Other,Left Upper: Distension,Right Upper: [place] [address] EMS Patient Care Report Name: KILO KIMBALL Room: [facility]#: [id number] Admission: 11/11/20 Attend Phys: Discharge: Date of : 40 Report #: [id number] Distension,Left Lower: Distension,Right Lower: Distension,PELVIS//GI:Pelvis GUOther,EXTREMITIES:Capillary Refill: Right Upper: < 2 Sec,PULSE:Radial: 2+ Normal,NEURO:@10:50MENTAL:Person Oriented,Time Oriented,Event Oriented,Place Oriented,SKIN:HEENT:Head/Face: No Abnormalities,Neck/Airway: No Abnormalities,LUNG SOUNDS:General: No Abnormalities,ABDOMEN:General: No Abnormalities,PELVIS//GI:EXTREMITIES:PULSE:NEURO:No Abnormalities, Impression Cough Procedures @10:29Solu-Medrol - 125 Milligrams (mg) - Intravenous (IV)Response: Unchanged@10:25Normal Saline (.9% NaCl) 10cc (20 ga) Site: Forearm-LeftResponse: UnchangedSucceeded@09:55ALS AssessmentResponse: UnchangedSucceeded@09:53Surgical Mask on PatientResponse: Unchanged@10:32Infectious Patient AlertResponse: Unchanged@10:2112-Lead ECG Timeline 09:41,Call Received 09:44,Dispatched 09:46,En Route 09:51,On Scene 09:53,At Patient 09:53,Surgical Mask on Patient,Response: Unchanged 09:55,ALS Assessment,Response: UnchangedSucceeded, 10:15,BP: 120/60 M,PULSE: 79,RR: 14 R,SPO2: 95 Ox,ETCO2: 31 ,B,PAIN: 0,GCS: 15, 10:21,12-Lead ECG, 10:21,BP: / M,PULSE: 83,RR: 18 R,SPO2: 94 Ox,ETCO2: 32 ,BG: ,PAIN: ,GCS: 15, 10:25,Depart Scene 10:25,Normal Saline (.9% NaCl) 10cc 20 ga Site: Forearm-Left,Response: UnchangedSucceeded, 10:29,Solu-Medrol - 125 Milligrams (mg) - Intravenous (IV),Response: Unchanged 10:30,BP: 126/92 M,PULSE: 80,RR: 22 R,SPO2: 95 Ox,ETCO2: 31 ,BG: ,PAIN: ,GCS: 15, 10:32,Infectious Patient Alert,Response: Unchanged 10:45,BP: 112/58 M,PULSE: 78,RR: 20 R,SPO2: 95 Ox,ETCO2: 31 ,BG: ,PAIN: ,GCS: 15, 10:55,BP: 114/60 M,PULSE: 81,RR: 18 R,SPO2: 94 Ox,ETCO2: 31 ,BG: ,PAIN: 0,GCS: 15, 10:57,At Destination 11:11,Call Closed Disclaimer v1.1 Copyright 2020 [employer] This EMS Care Summary contains data elements from the [place] [address] EMS Patient Care Report Name: LITODIANAKILO Sulaiman Room: [facility]#: [id number] Admission: 11/11/20 Attend Phys: Discharge: Date of : 40 Report #: [id number] (which may be displayed differently). It is designed to provide pertinent information for the following purposes: continuity of care, clinical quality, and state data reporting. The complete legal record is available to ED staff and administrators of the receiving hospital in [employer]'s Patient Tracker. All data is provided "as is."
[~2020-11-11 10:59] MED LIST changes: +DEXAMETHASONE1 MG PO; +TESSALON PERLE100 MG PO; +VIBRAMYCIN 100100 M2 PO
[2020-11-11 11:16] VITALS: BP 117/63
[2020-11-11 11:31] LABS: HEMOGLOBIN 12.5 gm/dL (14.0-18.0); MCH 31.5 pg (26.0-34.0); MCHC 34.7 g/dL (28.0-37.0); MCV 90.9 fL (80.0-100.0); MPV 8.1 fl. (7.2-11.1); NUCLEATED RBCS 0 /100WBC; PLATELET COUNT* 207 thou/uL (150-400); RBC 3.96 mil/uL (4.50-6.00); RDW-CV 13.6 % (10.5-14.5); WBC 9.6 thou/uL (4.0-11.0)
[2020-11-11 11:37] LABS: CALCIUM 8.6 mg/dL (8.5-10.1); CREATININE 1.5 mg/dL (0.6-1.3); POTASSIUM 3.7 mmol/L (3.5-5.1)
[2020-11-11 11:38] LABS: APTT 24.8 Seconds (25.0-31.3); PROTIME 10.8 Seconds (9.20-11.50)
[2020-11-11 11:47] LABS: ALBUMIN 3.5 g/dL (3.4-5.0); TOTAL BILIRUBIN 1.2 mg/dL (<0.1-1.0); TOTAL PROTEIN 7.5 g/dL (6.4-8.2)
[2020-11-11 12:13] LABS: ABSOLUTE LYMPHOCYTES 1.6 thou/uL (0.8-5.3); ABSOLUTE MONOCYTES 0.3 thou/uL (0.0-1.2); ABSOLUTE NEUTROPHILS 7.7 thou/uL (1.6-8.1); ATYPICAL LYMPHS 3 %; PLATELET ESTIMATE ADEQUATE
[2020-11-11 15:07] LABS: URINE BILIRUBIN NEGATIVE (Negative); URINE BLOOD NEGATIVE (Negative); URINE CLARITY CLEAR; URINE COLOR YELLOW; URINE GLUCOSE-RANDOM NEGATIVE (Negative); URINE KETONES NEGATIVE (Negative); URINE LEUKOCYTES-REFLEX NEGATIVE (Negative); URINE NITRITE-REFLEX NEGATIVE (Negative); URINE PROTEIN TRACE (Negative); URINE UROBILINOGEN 0.2 E.U./dl (0.2-1.0)
[2020-11-11 15:18] VITALS: BP 127/71
[2020-11-11 21:30] VITALS: BP 126/53
[2020-11-12 00:15] VITALS: BP 130/69
[2020-11-12 05:07] LABS: ABSOLUTE LYMPHOCYTES 0.5 thou/uL (0.8-5.3); ABSOLUTE MONOCYTES 0.2 thou/uL (0.0-1.2); ABSOLUTE NEUTROPHILS 7.1 thou/uL (1.6-8.1); BASOPHILS 0.1 %; HEMATOCRIT 33.2 % (42.0-52.0); HEMOGLOBIN 11.2 gm/dL (14.0-18.0); LYMPHOCYTES 6.2 %; MCH 30.9 pg (26.0-34.0); MCHC 33.6 g/dL (28.0-37.0); MCV 91.9 fL (80.0-100.0); MONOCYTES 2.5 %; MPV 7.7 fl. (7.2-11.1); NUCLEATED RBCS 0 /100WBC; PLATELET COUNT* 201 thou/uL (150-400); POLYS 91.2 %; RBC 3.62 mil/uL (4.50-6.00); RDW-CV 13.5 % (10.5-14.5); WBC 7.8 thou/uL (4.0-11.0)
[2020-11-12 05:19] LABS: CALCIUM 8.1 mg/dL (8.5-10.1); CREATININE 1.2 mg/dL (0.6-1.3); POTASSIUM 3.9 mmol/L (3.5-5.1)
[2020-11-12 08:30] VITALS: BP 128/62
--- NOTE | 2020-11-12 15:10 | EKG ---
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: : 1940 Requested By: David Donnelly Order Number: [id number] MD: Chaparro Johnson Measurements Intervals [place] Rate: 79 P: [place]: QRS: -34 QRSD: 117 T: 19 QT: 359 QTc: 412 Interpretive Statements Sinus rhythm Nonspecific interventricular conduction delay Inferior infarct, old possible Compared to ECG 02/19/2020 17:26:33 IVCD persists Myocardial infarct finding still present Electronically Signed On 11-12-2020 15:10:01 CLARIFICATION OPERATOR by Chaparro Johnson [email or web address] <ELECTRONICALLY SIGNED> By: Chaparro Johnson MD, FAC 11/12/20 1510 1107 1107 Chaparro Johnson MD, [facility] /EPI
[2020-11-12 18:20] VITALS: BP 133/57
[2020-11-12 20:30] VITALS: BP 126/63; BP 145/82
[2020-11-13 01:06] VITALS: BP 119/59
[2020-11-13 05:10] LABS: ABSOLUTE LYMPHOCYTES 0.4 thou/uL (0.8-5.3); ABSOLUTE MONOCYTES 0.4 thou/uL (0.0-1.2); ABSOLUTE NEUTROPHILS 11.8 thou/uL (1.6-8.1); BASOPHILS 0.2 %; HEMATOCRIT 31.4 % (42.0-52.0); HEMOGLOBIN 10.8 gm/dL (14.0-18.0); LYMPHOCYTES 3.6 %; MCH 30.8 pg (26.0-34.0); MCHC 34.3 g/dL (28.0-37.0); MCV 89.9 fL (80.0-100.0); NUCLEATED RBCS 0 /100WBC; PLATELET COUNT* 226 thou/uL (150-400); POLYS 93.2 %; RBC 3.49 mil/uL (4.50-6.00); RDW-CV 12.9 % (10.5-14.5); WBC 12.6 thou/uL (4.0-11.0)
[2020-11-13 05:39] LABS: ALBUMIN 2.6 g/dL (3.4-5.0); CALCIUM 8.1 mg/dL (8.5-10.1); CREATININE 0.9 mg/dL (0.6-1.3); POTASSIUM 3.7 mmol/L (3.5-5.1); TOTAL BILIRUBIN 1.1 mg/dL (<0.1-1.0); TOTAL PROTEIN 6.4 g/dL (6.4-8.2)
[2020-11-13 09:20] VITALS: BP 122/55
[2020-11-13 14:08] VITALS: BP 124/56; BP 125/66; BP 127/64
[2020-11-13 17:00] VITALS: BP 120/66
[2020-11-13 20:44] VITALS: BP 133/72
[2020-11-14 08:30] VITALS: BP 151/54
[2020-11-14 11:40] VITALS: BP 133/61
[2020-11-14 11:52] VITALS: BP 122/55
[2020-11-14 20:00] VITALS: BP 118/67
[2020-11-15 05:16] LABS: HEMATOCRIT 32.8 % (42.0-52.0); HEMOGLOBIN 11.3 gm/dL (14.0-18.0); MCHC 34.5 g/dL (28.0-37.0); MCV 89.8 fL (80.0-100.0); MPV 7.4 fl. (7.2-11.1); RBC 3.65 mil/uL (4.50-6.00); RDW-CV 13.3 % (10.5-14.5); WBC 7.6 thou/uL (4.0-11.0)
[2020-11-15 05:49] LABS: ALBUMIN 2.6 g/dL (3.4-5.0); CALCIUM 8.2 mg/dL (8.5-10.1); CREATININE 0.9 mg/dL (0.6-1.3); MAGNESIUM 2.7 mg/dL (1.8-2.4); POTASSIUM 3.9 mmol/L (3.5-5.1); TOTAL BILIRUBIN 0.8 mg/dL (<0.1-1.0); TOTAL PROTEIN 6.4 g/dL (6.4-8.2)
[2020-11-15 09:36] VITALS: BP 109/80
[2020-11-15 12:12] VITALS: BP 122/54
[2020-11-15 16:38] VITALS: BP 127/58
[2020-11-15 20:00] VITALS: BP 102/64
[2020-11-16 00:28] VITALS: BP 113/71
[2020-11-16 03:35] VITALS: BP 123/62
[2020-11-16 09:38] VITALS: BP 134/68
[2020-11-16 18:30] VITALS: BP 134/65
[2020-11-16 20:00] VITALS: BP 120/60
[2020-11-17 00:32] VITALS: BP 135/66
[2020-11-17 08:00] VITALS: BP 141/60
[2020-11-17 12:04] LABS: CREATININE 1.2 mg/dL (0.6-1.3)
[2020-11-17 20:45] VITALS: BP 130/67
[2020-11-18 04:00] VITALS: BP 134/68
[2020-11-18 06:26] LABS: HEMATOCRIT 33.1 % (42.0-52.0); HEMOGLOBIN 11.4 gm/dL (14.0-18.0); MCH 31.3 pg (26.0-34.0); MCHC 34.5 g/dL (28.0-37.0); MCV 90.7 fL (80.0-100.0); MPV 7.6 fl. (7.2-11.1); RBC 3.65 mil/uL (4.50-6.00); RDW-CV 13.4 % (10.5-14.5); WBC 11.3 thou/uL (4.0-11.0)
[2020-11-18 06:43] LABS: ALBUMIN 2.6 g/dL (3.4-5.0); CALCIUM 8.2 mg/dL (8.5-10.1); CREATININE 1.1 mg/dL (0.6-1.3); MAGNESIUM 2.7 mg/dL (1.8-2.4); POTASSIUM 4.4 mmol/L (3.5-5.1); TOTAL BILIRUBIN 0.7 mg/dL (<0.1-1.0)
[2020-11-18 08:30] VITALS: BP 136/61
[2020-11-18 16:00] VITALS: BP 128/60
[2020-11-18 20:00] VITALS: BP 136/57
[2020-11-19] MEDS ORDERED: TESSALON PERLE100 M1 PO (08:31)
[2020-11-19] MEDS ORDERED: HYDROCODONE-CH115 ML PO (08:31)
[2020-11-19] MEDS ORDERED: DEXAMETHASONE1 MG PO (08:31)
[2020-11-19 09:00] VITALS: BP 112/65
[2020-11-19 11:19] VITALS: BP 112/65
[2020-11-19 11:58] VITALS: BP 112/65
[2020-11-19 13:16] VITALS: BP 112/65
== END 2020-11-19 12:50 | disposition home health service (06) | DRG 871 ==
LOC: M.ERS 10:59 → M.ORTHSURG 13:31 → M.TBA-ER 13:31 → M.ORTHSURG 15:27
PROVIDERS: Family Medicine; Internal Medicine; ADMIT Internal Medicine; ATTEND Internal Medicine
PROC: XW033E5 Introduction of Remdesivir Anti-infective into Peripheral Vein, Percutaneous Approach, New Technology Group 5 (ICD-10-PCS; principal; 2020-11-13)
PROC: B54MZZA Ultrasonography of Right Upper Extremity Veins, Guidance (ICD-10-PCS; principal; 2020-11-13)
PROC: 05HD33Z Insertion of Infusion Device into Right Cephalic Vein, Percutaneous Approach (ICD-10-PCS; principal; 2020-11-13)
PROC: XW13325 Transfusion of Convalescent Plasma (Nonautologous) into Peripheral Vein, Percutaneous Approach, New Technology Group 5 (ICD-10-PCS; principal; 2020-11-13)
DX: A41.89 Other specified sepsis (principal); U07.1 COVID-19; J12.82 Pneumonia due to coronavirus disease 2019; N17.9 Acute kidney failure, unspecified; I25.10 Atherosclerotic heart disease of native coronary artery without angina pectoris; K21.9 Gastro-esophageal reflux disease without esophagitis; E78.00 Pure hypercholesterolemia, unspecified; M19.90 Unspecified osteoarthritis, unspecified site; R09.02 Hypoxemia; M06.9 Rheumatoid arthritis, unspecified; Z95.1 Presence of aortocoronary bypass graft; Z79.82 Long term (current) use of aspirin; Z79.899 Other long term (current) drug therapy; Z88.0 Allergy status to penicillin; Z95.5 Presence of coronary angioplasty implant and graft

== ENCOUNTER → 2021-06-24 | Outpatient (CLI) | payer MEDICARE ==
[~2021-06-24] MED LIST changes: +HYDROCODONE-CH115 ML PO; +TESSALON PERLE100 M1 PO
--- NOTE | 2021-06-24 10:19 | 2DMMODE ---
[place] [address] 2 D/M-MODE ECHOCARDIOGRAM Name: KILO KIMBALL Room: [facility]#: [id number] Admission: 06/24/21 Attend Phys: Po Jordan, Discharge: Date of : 40 Date of Service: 06/24/21 1018 Report #: [id number] THIS REPORT FOR: cc: Eric Cleaning Bradley L. DO Blick,Waylon Woodruff MD [facility] ~ APPROVED REPORT Study performed: 06/24/2021 08:05:54 EXAM: Comprehensive 2D, Doppler, and color-flow Echocardiogram Patient Location: Out-Patient BSA: 1.85 HR: 52 bpm BP: 130/60 mmHg Other Information Study Quality: Good Indications Aortic Valve Disease CAD 2D Dimensions IVSd: 11.87 (7-11mm) LVOT Diam: 20.28 (18-24mm) LVDd: 45.63 mm PWd: 10.61 (7-11mm) Ascending Ao: 30.42 (22-36mm) LVDs: 25.14 (25-40mm) Aortic Root: 29.92 mm Volumes Left Atrial Volume (Systole) LA ESV Index: 17.80 mL/m2 Aortic Valve AoV Peak Dudley.: 2.39 m/s AO Peak Gr.: 22.78 mmHg LVOT Max P.73 mmHg AO Mean Gr.: 12.21 mmHg LVOT Mean P.74 mmHg LVOT Max V: 0.66 m/s AO V2 VTI: 57.85 cm LVOT Mean V: 0.39 m/s WINDY (VTI): 0.95 cm2 LVOT V1 VTI: 17.08 [place] [address] 2 D/M-MODE ECHOCARDIOGRAM Name: KILO KIMBALL [facility] [id number] Admission: 06/24/21 Attend Phys: Po Jordan, Discharge: Date of : 40 Date of Service: 06/24/21 1018 Report #: [id number] E/A Ratio: 1.31 MV Decel. Time: 203.05 ms MV E Max Dudley.: 0.84 m/s MV PHT: 58.88 ms MVA (PHT): 3.74 cm2 TDI E/Lateral E': 7.64 E/Medial E': 9.33 Medial E' Dudley.: 0.09 m/s Lateral E' Dudley.: 0.11 m/s Pulmonary Valve PV Peak Dudley.: 1.20 m/s PV Peak Gr.: 5.74 mmHg Tricuspid Valve RAP Estimate: 5.00 mmHg TR Peak Gr.: 20.67 mmHg RVSP: 25.67 mmHg PA Pressure: 25.67 mmHg Left Ventricle The left ventricle is normal size. There is normal LV segmental wall motion. There is normal left ventricular wall thickness. Left ventricular systolic function is normal. The left ventricular ejection fraction is within the normal range. LVEF is 55-60%. The left ventricular diastolic function is normal. Right Ventricle The right ventricle is normal size. The right ventricular systolic function is normal. Atria The left atrium size is normal. The right atrium size is normal. Aortic Valve Aortic valve is calcified. No aortic regurgitation is present. Moderate aortic stenosis. Mitral Valve The mitral valve is normal in structure. Mild mitral regurgitation. No evidence of mitral valve stenosis. Tricuspid Valve The tricuspid valve is normal in structure. Mild [place] [address] 2 D/M-MODE ECHOCARDIOGRAM Name: KILO KIMBALL Room: [facility]#: [id number] Admission: 06/24/21 Attend Phys: Po Jordan, Discharge: Date of : 40 Date of Service: 06/24/21 1018 Report #: [id number] Pulmonic Valve The pulmonary valve is normal in structure. Mild pulmonic regurgitation. Great Vessels The aortic root is normal in size. IVC is normal in size and collapses >50% with inspiration. Pericardium There is no pericardial effusion. <Conclusion> LVEF is 55-60%. Moderate aortic stenosis. Mild mitral regurgitation. <ELECTRONICALLY SIGNED> By: Waylon Sidhu MD, [facility] 06/24/21 1018 1018 1018 Waylon Sidhu MD, [facility] /INF
== END ==
LOC: M.CRD 08:18
PROVIDERS: ATTEND Internal Medicine Cardiovascular Disease
DX: I08.8 Other rheumatic multiple valve diseases (principal); I25.10 Atherosclerotic heart disease of native coronary artery without angina pectoris

== ENCOUNTER → 2021-10-28 | Outpatient (CLI) | payer MEDICARE ==
[2021-10-28 09:10] LABS: CREATININE 1.2 mg/dL (0.6-1.3)
== END ==
LOC: M.LAB 10-22 09:33 → M.CT 10:00
PROVIDERS: ATTEND Surgery Vascular Surgery
DX: I70.1 Atherosclerosis of renal artery (principal); I70.213 Atherosclerosis of native arteries of extremities with intermittent claudication, bilateral legs; J98.11 Atelectasis; K44.9 Diaphragmatic hernia without obstruction or gangrene; K40.90 Unilateral inguinal hernia, without obstruction or gangrene, not specified as recurrent; M47.816 Spondylosis without myelopathy or radiculopathy, lumbar region; Z96.651 Presence of right artificial knee joint

== ENCOUNTER → 2022-01-06 | Outpatient (CLI) | payer OTHER | LOC: M.RAD 09:29 | PROVIDERS: ATTEND Nurse Practitioner | DX: M51.26 Other intervertebral disc displacement, lumbar region (principal); M47.816 Spondylosis without myelopathy or radiculopathy, lumbar region; M43.16 Spondylolisthesis, lumbar region; I70.8 Atherosclerosis of other arteries; M41.86 Other forms of scoliosis, lumbar region; M25.78 Osteophyte, vertebrae ==